=== PATIENT | male | born 1960 ===

== ENCOUNTER 2016-11-20 05:00 | Inpatient (IN) ==
[2016-11-20] MEDS ORDERED: DEXTROSE 50% 25 GM/50 ML VIAL IV PRN ×2 (08:20)
[2016-11-20] MEDS ORDERED: GLUCAGON 1 MG VIAL IM PRN ×2 (08:20)
--- NOTE | 2016-11-20 08:20 | Cardiothoracic History & Phys ---
History of Present Illness Chief complaint: Chest pain History of present illness: Mr. Kessler is a 56 year old male who was admitted to [facility] from the [facility] in [facility]. He was found there and his cell with a reduced level of responsiveness. He was taken to the emergency room at [facility] were he was found to have an elevated methamphetamine level but also was found to have evidence of increased cardiac enzymes. When he was able to give some history it was found that he been having increasing symptoms of chest discomfort shortness of breath over the past several weeks. He was admitted to the [facility] for recovery and further evaluation. As part of that he underwent cardiac catheterization which did demonstrate critical two-vessel coronary disease. He was advised to have bypass surgery and is transferred to this hospital for that purpose. Past medical history: The patient is a very poor historian and we have very little in the way of past history other than that the patient was incarcerated at this [place]. His family history social history review of systems are essentially not obtainable. Physical examination patient is a well-developed well-nourished man in no acute distress. He is not very responsive to questions although he is clearly awake and alert. Examination of head eyes ears nose and throat show the pupils are equal and react to light extraocular motions appear to be intact the oropharynx is benign. Examination of the neck shows that there are no masses and there is no thyromegaly. Examination chest is clear to percussion and auscultation. Examination of heart shows regular sinus rhythm and there are no murmurs. Examination the abdomen shows that it is soft and nontender and there are no masses or organomegaly. Examination extremities shows no cyanosis or edema. Neurological examination is grossly intact from a limited ability to fully evaluated. Assessment: Severe two-vessel coronary artery disease. Plan: Coronary bypass surgery Monday11/21/2016.
[2016-11-20] MEDS ORDERED: SODIUM CHLORIDE 0.9% 1,000 ML IV SCH (08:30)
[2016-11-20 16:30] LABS: ABG Base Excess 4.2 MMOL/L (-2.5-2.5); ABG HCO3 28.1 MMOL/L (20-26); ABG Oxygen Saturation 93.2 % (95-100); ABG PCO2 38.2 MM HG (35-48); ABG PH 7.473 (7.35-7.45); ABG PO2 61.6 MM HG (80-95); ABG TCO2 24.8 MMOL/L (23-27); Allen Test Positive; Pt O2 Delivery Device Room Air
[2016-11-20 16:49] LABS: Basophils % 0.2 % (0.0-0.8); Eosinophils # 0.2 10*3/uL (0.0-0.87); Eosinophils % 1.4 % (0.00-10.9); Hematocrit 33.2 VOL% (42.0-52.0); Hemoglobin 11.8 GM/DL (14.0-18.0); Immature Granulocytes % 0.7 %; Immature Granulocytes Absolute 0.08 #; Lymphocytes # 2.3 10*3/uL (1.4-4.0); Lymphocytes % 19.2 % (21.2-54.2); Mean Corpuscular HGB Conc 35.5 GM/DL (32-36); Mean Corpuscular Hemoglobin 33 PG (27-34); Mean Corpuscular Volume 91.5 FL (87-102); Mean Platelet Volume 10.1 FL (9.6-12.0); Monocytes # 1.3 10*3/uL (0.11-0.8); Monocytes % 10.9 % (1.7-12.7); Neutrophils # 8.2 10*3/uL (1.4-7.4); Neutrophils % 67.6 % (38.7-73.9); Platelet Count 208 T/CUMM (130-400); Red Blood Count 3.63 MC/CUMM (3.8-5.5); Red Cell Distribution Width 12.5 % (9.3-17.3); White Blood Count 12.1 T/CUMM (4-12)
--- NOTE | 2016-11-20 17:04 | XRay Report ---
Portable chest. Indication: Coronary artery disease. The heart is normal in size. There are moderate platelike areas of atelectasis present within each lung base. No pneumothorax. No definite pleural effusion. Normal pulmonary vasculature. Impression: Moderate platelike atelectasis at each lung base. PROCEDURE INTERPRETED AT [facility] DEPARTMENT OF RADIOLOGY Final Report Signed by: Dr. Millie Murphy
[2016-11-20 17:24] LABS: Albumin 2.5 G/DL (3.4-5.0); Bilirubin,Total 0.7 MG/DL (0.2-1.0); Calcium 8.7 MG/DL (8.5-10.1); Total Protein 6.5 G/DL (6.4-8.3)
[2016-11-20 17:25] LABS: Osmolality,Calculated 281.1 MOS/KG (273-304); Potassium 3.7 MMOL/L (3.5-5.1)
[2016-11-20] MEDS: hydroCHLOROthiazide 12.5 MG CAPSULE PO SCH (17:54)
[2016-11-20] MEDS: amLODIPine 10 MG TABLET PO SCH (17:54)
[2016-11-20] MEDS: CHLORHEXIDINE 0.12% ORAL RINSE 60 ML BOTTLE SWISH/SPIT SCH ×2 (17:55→20:23)
[2016-11-20] MEDS: LISINOPRIL 20 MG TABLET PO SCH (17:55)
[2016-11-20] MEDS: CHLORHEXIDINE 4% SOLN 118 ML BOTTLE TOP SCH ×3 (17:55→22:30)
[2016-11-20] MEDS ORDERED: TAMSULOSIN 0.4 MG CAPSULE PO SCH (21:00)
[2016-11-21] MEDS: CHLORHEXIDINE 4% SOLN 118 ML BOTTLE TOP SCH (03:30)
[2016-11-21] MEDS ORDERED: TISSUE ADHESIVE 1 EACH APPLICATOR TOP ONE (04:41)
[2016-11-21] MEDS ORDERED: PAPAVERINE 60 MG/2 ML VIAL ONE (04:41)
[2016-11-21] MEDS ORDERED: VANCOMYCIN 1,000 MG VIAL ONE ×2 (04:42→07:48)
[2016-11-21] MEDS ORDERED: LORazepam 1 MG TABLET PO ONE (05:30)
[2016-11-21] MEDS ORDERED: FAMOTIDINE 20 MG TABLET PO ONE (05:30)
[2016-11-21] MEDS ORDERED: SODIUM CHLORIDE 0.9% 1,000 ML IV SCH (06:00)
[2016-11-21] MEDS ORDERED: CEFUROXIME INJ 1,500 MG in SODIUM CHLORIDE 0.9% 100 ML IV ONE (06:00)
[2016-11-21 07:41] LABS: INR 1.1; PT Patient Result 11.4 SECS
[2016-11-21] MEDS ORDERED: CALCIUM CHLORIDE 1,000 MG/10 ML SYRINGE IV ONE ×2 (07:42→12:12)
[2016-11-21] MEDS ORDERED: PHENYLEPHRINE DRIP 40 MG/250 ML PREMIX IV ONE (07:42)
[2016-11-21] MEDS ORDERED: POTASSIUM CHLORIDE RIDER 100 ML IV ONE (07:42)
[2016-11-21] MEDS ORDERED: NITROPRUSSIDE 50 MG/2 ML VIAL ONE (07:42)
[2016-11-21 07:44] LABS: ABG HCO3 24.5 MMOL/L (20-26); ABG PCO2 34.3 MM HG (35-48); ABG PH 7.445 (7.35-7.45); Glucose Heart Surgery 110 MG/DL (74-106); Hematocrit Heart Surgery 34.7 PERCENT (42-52); Hemoglobin Heart Surgery 11.3 G/DL (14.0-18.0); Ionized Calcium Arterial 1.14 MMOL/L (1.21-1.46); PCO2 Patient Temp Arterial 34.3 MMHG; PH Patient Temp Arterial 7.445; Patient Temperature 37 CELCIUS; Potassium Heart/CVR 3.8 MMOL/L (3.5-5.1); Sodium Heart/CVR 138 MMOL/L (135-145)
[2016-11-21 09:21] LABS: Hematocrit Heart Surgery 25.4 PERCENT (42-52); Hemoglobin Heart Surgery 8.2 G/DL (14.0-18.0); PCO2 Patient Temp Venous 39.1 MM HG; PH Patient Temp Venous 7.422; PO2 Patient Temp Venous 33.8 MM HG; Potassium Heart/CVR 4.9 MMOL/L (3.5-5.1); VBG Base Excess 1.2 MEQ/L (0-4); VBG HCO3 25.1 MEQ/L (24-28); VBG PH 7.393; VBG PO2 38.8 MMHG (17-40)
[2016-11-21] MEDS ORDERED: EPINEPHrine 1 MG/10 ML SYRINGE ONE (09:40)
[2016-11-21] MEDS ORDERED: LIDOCAINE 100 MG/5 ML SYRINGE ONE (09:41)
[2016-11-21] MEDS ORDERED: ALBUMIN 5% 12.5 GM/250 ML VIAL IV ONE ×2 (09:43→12:14)
[2016-11-21 09:51] LABS: Hematocrit Heart Surgery 27.5 PERCENT (42-52); Hemoglobin Heart Surgery 8.9 G/DL (14.0-18.0); PCO2 Patient Temp Venous 40.7 MM HG; PH Patient Temp Venous 7.4; PO2 Patient Temp Venous 35.5 MM HG; Potassium Heart/CVR 4.6 MMOL/L (3.5-5.1); VBG Base Excess 0.5 MEQ/L (0-4); VBG HCO3 24.4 MEQ/L (24-28); VBG Oxygen Saturation 70.3 %; VBG PCO2 42.7 MMHG (41-51); VBG PH 7.385; VBG PO2 38.1 MMHG (17-40)
[2016-11-21] MEDS ORDERED: MANNITOL 12.5 GM/50 ML VIAL IV ONE (10:24)
[2016-11-21] MEDS ORDERED: PROTAMINE SULFATE 250 MG/25 ML VIAL IV ONE (10:24)
[2016-11-21] MEDS ORDERED: HEPARIN 10,000 UNIT/10 ML VIAL ONE (10:24)
[2016-11-21] MEDS ORDERED: MAGNESIUM SULFATE 1 GM/2 ML VIAL ONE (10:24)
[2016-11-21] MEDS ORDERED: methylPREDNISolone SOD SUC 1,000 MG/8 ML VIAL ONE (10:24)
[2016-11-21] MEDS ORDERED: ALBUMIN 25% 25 GM/100 ML VIAL IV ONE (10:24)
[2016-11-21] MEDS ORDERED: SODIUM BICARBONATE 50 MEQ/50 ML SYRINGE IV ONE (10:24)
[2016-11-21] MEDS ORDERED: PHENYLEPHRINE DRIP 20 MG/250 ML PREMIX IV ONE ×2 (10:24→12:12)
[2016-11-21] MEDS ORDERED: DEXTROSE 5% KCL 20 MEQ 20 MEQ/1,000 ML BAG IV ONE (10:24)
[2016-11-21] MEDS ORDERED: FUROSEMIDE 20 MG/2 ML VIAL ONE (10:25)
[2016-11-21 10:36] LABS: ABG Base Excess -2.5 MMOL/L (-2.5-2.5); ABG HCO3 22.4 MMOL/L (20-26); ABG Oxygen Saturation 99.6 % (95-100); ABG PCO2 47.6 MM HG (35-48); ABG PH 7.311 (7.35-7.45); Glucose Heart Surgery 201 MG/DL (74-106); Hemoglobin Heart Surgery 10.3 G/DL (14.0-18.0); Ionized Calcium Arterial 1.44 MMOL/L (1.21-1.46); PCO2 Patient Temp Arterial 47.6 MMHG; PH Patient Temp Arterial 7.311; Patient Temperature 37 CELCIUS; Sodium Heart/CVR 137 MMOL/L (135-145)
[2016-11-21] MEDS ORDERED: INSULIN REGULAR 100 UNIT/ML IV ONE (11:15)
[2016-11-21] MEDS ORDERED: INSULIN REGULAR 100 UNIT/ML IV PRN (11:15)
[2016-11-21] MEDS ORDERED: DEXTROSE 50% 25 GM/50 ML VIAL IV PRN ×2 (11:15)
[2016-11-21] MEDS ORDERED: MORPHINE 10 MG/1 ML VIAL IV PRN (11:15)
[2016-11-21] MEDS ORDERED: VECURONIUM 10 MG VIAL IV PRN ×2 (11:15)
[2016-11-21] MEDS ORDERED: MAGNESIUM SULF RIDER 4 GM in PREMIX 1 EACH IV PRN (11:15)
[2016-11-21] MEDS ORDERED: PHENYLEPHRINE DRIP 40 MG/250 ML PREMIX IV PRN (11:15)
[2016-11-21] MEDS ORDERED: NITROPRUSSIDE 100 MG in DEXTROSE 5% 250 ML IV PRN (11:15)
[2016-11-21] MEDS ORDERED: MAGNESIUM SULF RIDER 2 GM in PREMIX 1 EACH IV PRN (11:15)
[2016-11-21] MEDS ORDERED: MIDAZOLAM 2 MG/2 ML VIAL IV PRN (11:15)
[2016-11-21] MEDS ORDERED: ACETAMINOPHEN 650 MG SUPP RECTAL PRN (11:15)
[2016-11-21] MEDS ORDERED: MORPHINE 2 MG/1 ML SYRINGE IV PRN (11:15)
[2016-11-21] MEDS ORDERED: LACTATED RINGERS 250 ML IV PRN (11:15)
[2016-11-21] MEDS ORDERED: ONDANSETRON 4 MG/2 ML VIAL IV PRN (11:15)
[2016-11-21] MEDS: LACTATED RINGERS 1,000 ML IV PRN ×5 (11:15→21:35)
[2016-11-21] MEDS ORDERED: CALCIUM CHLORIDE 1,000 MG/10 ML SYRINGE IV PRN (11:15)
[2016-11-21] MEDS ORDERED: PROTAMINE SULFATE 50 MG/5 ML VIAL IV ONE ×2 (11:21→11:23)
[2016-11-21] MEDS ORDERED: INSULIN REGULAR DRIP 100 ML IV SCH (11:30)
[2016-11-21] MEDS: SODIUM CHLORIDE 0.45% 1,000 ML IV SCH ×2 (11:35→11:36)
[2016-11-21] MEDS: KETOROLAC 30 MG/1 ML VIAL IV SCH ×3 (11:37→23:55)
[2016-11-21 11:40] LABS: ABG Base Excess -0.5 MMOL/L (-2.5-2.5); ABG Oxygen Saturation 99.1 % (95-100); ABG PH 7.385 (7.35-7.45); ABG TCO2 22.1 MMOL/L (23-27); Glucose Heart Surgery 176 MG/DL (74-106); Hematocrit Heart Surgery 33.1 PERCENT (42-52); Hemoglobin Heart Surgery 10.7 G/DL (14.0-18.0); Potassium Heart/CVR 3.4 MMOL/L (3.5-5.1)
[2016-11-21 11:44] LABS: Basophils % 0.2 % (0.0-0.8); Eosinophils # 0.1 10*3/uL (0.0-0.87); Eosinophils % 0.7 % (0.00-10.9); Hematocrit 29.9 VOL% (42.0-52.0); Hemoglobin 10.8 GM/DL (14.0-18.0); Immature Granulocytes % 2.9 %; Immature Granulocytes Absolute 0.36 #; Lymphocytes # 1.1 10*3/uL (1.4-4.0); Lymphocytes % 9.1 % (21.2-54.2); Mean Corpuscular HGB Conc 36.1 GM/DL (32-36); Mean Corpuscular Hemoglobin 33 PG (27-34); Mean Corpuscular Volume 90.9 FL (87-102); Mean Platelet Volume 10.1 FL (9.6-12.0); Monocytes # 0.7 10*3/uL (0.11-0.8); Monocytes % 5.8 % (1.7-12.7); Neutrophils # 10.2 10*3/uL (1.4-7.4); Neutrophils % 81.3 % (38.7-73.9); Platelet Count 178 T/CUMM (130-400); Red Blood Count 3.29 MC/CUMM (3.8-5.5); Red Cell Distribution Width 12.7 % (9.3-17.3); White Blood Count 12.6 T/CUMM (4-12)
[2016-11-21] MEDS: POTASSIUM CHLORIDE RIDER 20 MEQ in PREMIX 1 EACH IV PRN ×4 (11:45→20:47)
[2016-11-21] MEDS: CHLORHEXIDINE 0.12% ORAL RINSE 60 ML BOTTLE SWISH/SPIT SCH ×2 (11:55→21:34)
[2016-11-21] MEDS: amLODIPine 10 MG TABLET PO SCH (11:55)
[2016-11-21] MEDS: hydroCHLOROthiazide 12.5 MG CAPSULE PO SCH (11:55)
[2016-11-21 11:56] LABS: INR 1.4; PT Patient Result 14.6 SECS; Partial Thromboplastin Time 27.4 SECS (0-40)
[2016-11-21] MEDS: LISINOPRIL 20 MG TABLET PO SCH (11:56)
[2016-11-21] MEDS ORDERED: SUFentanil 250 MCG/5 ML AMP ONE (12:07)
[2016-11-21] MEDS ORDERED: MIDAZOLAM 10 MG/2 ML VIAL ONE ×2 (12:07→12:13)
[2016-11-21] MEDS ORDERED: HEPARIN/NACL 0.9% 2 UNITS/ML 500 ML IV ONE (12:12)
[2016-11-21] MEDS ORDERED: SEVOFLURANE 1 UNIT/15 MINUTE INH ONE (12:12)
[2016-11-21] MEDS ORDERED: LACTATED RINGERS 1,000 ML IV ONE (12:13)
[2016-11-21] MEDS ORDERED: SODIUM CHLORIDE 0.9% 1,000 ML IV ONE (12:13)
[2016-11-21] MEDS ORDERED: SODIUM CHLORIDE 0.9% 250 ML IV ONE (12:13)
[2016-11-21] MEDS ORDERED: SODIUM CHLORIDE 0.9% 100 ML IV ONE (12:13)
[2016-11-21] MEDS ORDERED: MINERAL OIL/PETROLATUM OPH OINT 3.5 GM TUBE ONE (12:13)
[2016-11-21] MEDS ORDERED: NITROGLYCERIN DRIP 50 MG/250 ML BOTTLE IV ONE (12:13)
[2016-11-21] MEDS ORDERED: VECURONIUM 10 MG VIAL IV ONE (12:13)
[2016-11-21] MEDS ORDERED: AMINOCAPROIC ACID 5,000 MG/20 ML VIAL IV ONE (12:13)
[2016-11-21] MEDS ORDERED: ETOMIDATE 20 MG/10 ML VIAL IV ONE (12:13)
[2016-11-21 12:14] LABS: Albumin 2.9 G/DL (3.4-5.0); Bilirubin,Total 1.8 MG/DL (0.2-1.0); Calcium 9.2 MG/DL (8.5-10.1); Magnesium 2.5 MG/DL (1.8-2.4); Osmolality,Calculated 290.8 MOS/KG (273-304); Potassium 3.6 MMOL/L (3.5-5.1)
[2016-11-21 12:15] LABS: CKMB % 3.7 %
[2016-11-21 12:16] LABS: Troponin I Only 0.951 NG/ML (0.00-0.045)
[2016-11-21] MEDS: POTASSIUM CHLORIDE RIDER 10 MEQ in PREMIX 1 EACH IV PRN (12:53)
--- NOTE | 2016-11-21 13:03 | Operative Note ---
Date of procedure: 11/21/16 Pre-op diagnosis: Coronary artery disease Post-op diagnosis: same (Coronary artery disease) Procedure: Procedure: Coronary bypass grafting 2 with a left internal mammary graft to the anterior descending coronary artery and a saphenous vein graft to the right coronary artery. Findings: Patient is a 56-year-old man who was found at [facility] to have two-vessel coronary disease and was referred for bypass surgery. This time of surgery left ventricular function was noted to be normal and a left internal mammary graft was placed to a large anterior descending coronary artery which was free of disease at the site of anastomosis. Saphenous vein graft was placed to the right coronary artery. Patient tolerated procedure well and was returned to recovery in satisfactory condition. Procedure: Patient brought the operating room placed on the operating table in the supine position. After satisfactory induction of general anesthesia the chest abdomen and legs were prepped and draped in sterile fashion. Greater saphenous vein was harvested from the right lower leg and prepared is an arterial graft. Incision in the leg was closed with 3-0 subcutaneous Monocryl and 3-0 subcuticular Monocryl. A standard sternotomy incision was made and the sternum was divided and the heart suspended in a pericardial cradle. Left internal mammary artery was dissected free and prepared as an arterial graft. Patient was prepared for cardiopulmonary bypass with systemic heparinization and cannulation the ascending aorta and right atrium. Cardiopulmonary bypass was begun and aorta was crossclamped and the heart arrested with cardioplegia solution injected into the aortic root. Heart was protected during the period of crossclamping with topical saline slush. Distal anastomoses were constructed as noted above and then the aorta was unclamped reestablishing cardiac action. The proximal anastomosis was constructed between the inflow end of the saphenous vein graft in the ascending aorta. Patient was then weaned from cardiopulmonary bypass without difficulty and the heparin effect reversed with protamine. Decannulation was carried out in a defects in the ascending aorta and right atrium were closed with 3-0 Prolene. Operative field was inspected for hemostasis and this was considered adequate the incision was closed with interrupted stainless steel wire and the sternum 0 Monopril in the presternal fascia and 3-0 subcuticular Monocryl. 2 chest tubes were left in the anterior mediastinum and brought out through separate stab incisions. Sterile dressings were applied and the patient was returned to recovery in satisfactory condition. Surgeon / Physician: Kike Hammond Estimated blood loss: other (Unable to determine because of cardiopulmonary bypass) Condition: stable Disposition: ICU Results - Labs CBC & BMP: 11/21/16 11:35 11/21/16 11:35 Discharge Plan - Discharge Medications No Action amLODIPine [Norvasc] 10 mg PO DAILY hydroCHLOROthiazide [Hydrochlorothiazide] 25 mg PO DAILY Tamsulosin [Flomax] 0.4 mg PO DAILY Calcium Carbonate [Calcium Antacid] 1 tablet PO BID PRN PRN Reason: Indigestion Aspirin [Ecotrin] 81 mg PO DAILY Famotidine Tab [Pepcid Tab] 20 mg PO DAILY Lisinopril 40 mg PO DAILY - Follow Up or Referral - Forms/Instructions
[2016-11-21 14:23] LABS: ABG Base Excess 1.5 MMOL/L (-2.5-2.5); ABG HCO3 25.8 MMOL/L (20-26); ABG Oxygen Saturation 99.4 % (95-100); ABG PCO2 40.2 MM HG (35-48); ABG PH 7.419 (7.35-7.45); ABG TCO2 23.5 MMOL/L (23-27); Glucose Heart Surgery 146 MG/DL (74-106); Hematocrit Heart Surgery 32.3 PERCENT (42-52); Hemoglobin Heart Surgery 10.4 G/DL (14.0-18.0); Potassium Heart/CVR 4.1 MMOL/L (3.5-5.1)
[2016-11-21] MEDS: ALBUMIN 5% 12.5 GM in PREMIX 1 EACH IV PRN ×6 (14:31→23:17)
--- NOTE | 2016-11-21 14:33 | XRay Report ---
Exam: XR chest 1V portable Indication: Status post CABG Comparison study: Prior chest 11/20/2016 Findings: Cardiac silhouette is essentially stable from prior. Postsurgical changes of interval CABG noted. Multiple mediastinal drains are in place. There is no significant pneumothorax identified. There are minimal perihilar and basilar interstitial opacities and minimal layering fluid on the left most compatible with small pleural effusion and/or residual hemothorax. Endotracheal tube is noted in place and terminates approximately 3 cm from the don. Right-sided central line and [place]-Blanca catheter are noted in position. [place]-Blanca catheter tip is in the proximal right pulmonary artery. Impression: Postsurgical changes of interval CABG. Positioning of support tubes and lines as noted above. Probable perihilar and basilar atelectasis with small left pleural effusion/postsurgical hemothorax. No pneumothorax. PROCEDURE INTERPRETED AT [facility] DEPARTMENT OF RADIOLOGY Final Report Signed by: Gonzalez Bauman
[2016-11-21 15:01] LABS: ABG HCO3 25.4 MMOL/L (20-26); ABG Oxygen Saturation 99.7 % (95-100); ABG PCO2 40.9 MM HG (35-48); ABG PH 7.408 (7.35-7.45); ABG TCO2 23.3 MMOL/L (23-27); Glucose Heart Surgery 147 MG/DL (74-106); Hematocrit Heart Surgery 31.9 PERCENT (42-52); Hemoglobin Heart Surgery 10.3 G/DL (14.0-18.0); Potassium Heart/CVR 4.5 MMOL/L (3.5-5.1)
[2016-11-21 16:05] LABS: ABG Base Excess 1.8 MMOL/L (-2.5-2.5); ABG HCO3 26.3 MMOL/L (20-26); ABG PCO2 40.6 MM HG (35-48); ABG PH 7.429 (7.35-7.45); ABG PO2 121.9 MM HG (80-95); ABG TCO2 27.5 MMOL/L (23-27); Glucose Heart Surgery 147 MG/DL (74-106); Hemoglobin Heart Surgery 11.3 G/DL (14.0-18.0); Potassium Heart/CVR 4.4 MMOL/L (3.5-5.1)
[2016-11-21] MEDS: CEFUROXIME INJ 1,500 MG in SODIUM CHLORIDE 0.9% 100 ML IV SCH (18:08)
[2016-11-21 18:13] LABS: ABG Base Excess 1.2 MMOL/L (-2.5-2.5); ABG HCO3 25.5 MMOL/L (20-26); ABG Oxygen Saturation 97.8 % (95-100); ABG PCO2 41.7 MM HG (35-48); ABG PH 7.404 (7.35-7.45); ABG TCO2 23.5 MMOL/L (23-27); Glucose Heart Surgery 150 MG/DL (74-106); Hematocrit Heart Surgery 33.2 PERCENT (42-52); Hemoglobin Heart Surgery 10.8 G/DL (14.0-18.0); Potassium Heart/CVR 4.2 MMOL/L (3.5-5.1)
[2016-11-21] MEDS ORDERED: FUROSEMIDE 40 MG/4 ML VIAL IV ONE (18:22)
[2016-11-21 20:40] LABS: ABG Base Excess 1.4 MMOL/L (-2.5-2.5); ABG HCO3 25.6 MMOL/L (20-26); ABG Oxygen Saturation 95.4 % (95-100); ABG PCO2 41.3 MM HG (35-48); ABG PO2 75.3 MM HG (80-95); ABG TCO2 24.1 MMOL/L (23-27); Glucose Heart Surgery 134 MG/DL (74-106); Hematocrit Heart Surgery 27.9 PERCENT (42-52); Potassium Heart/CVR 3.4 MMOL/L (3.5-5.1)
[2016-11-21 21:13] LABS: CKMB % 4.5 %
[2016-11-21 21:14] LABS: Troponin I Only 2.14 NG/ML (0.00-0.045)
[2016-11-22 00:06] LABS: ABG Base Excess 1.9 MMOL/L (-2.5-2.5); ABG Oxygen Saturation 95.5 % (95-100); ABG PH 7.442 (7.35-7.45); ABG PO2 81.1 MM HG (80-95); ABG TCO2 27.2 MMOL/L (23-27); Glucose Heart Surgery 110 MG/DL (74-106); Hemoglobin Heart Surgery 10.6 G/DL (14.0-18.0); Potassium Heart/CVR 3.8 MMOL/L (3.5-5.1)
[2016-11-22] MEDS: POTASSIUM CHLORIDE RIDER 20 MEQ in PREMIX 1 EACH IV PRN ×5 (00:39→11:38)
[2016-11-22] MEDS: POTASSIUM CHLORIDE RIDER 10 MEQ in PREMIX 1 EACH IV PRN (01:29)
[2016-11-22] MEDS: MIDAZOLAM 10 MG/2 ML VIAL IV PRN ×2 (02:34→04:24)
[2016-11-22 03:51] LABS: ABG Base Excess 0.8 MMOL/L (-2.5-2.5); ABG HCO3 25.1 MMOL/L (20-26); ABG Oxygen Saturation 95.9 % (95-100); ABG PCO2 42.3 MM HG (35-48); ABG PH 7.394 (7.35-7.45); ABG PO2 78.2 MM HG (80-95); ABG TCO2 23.6 MMOL/L (23-27); Glucose Heart Surgery 117 MG/DL (74-106); Hematocrit Heart Surgery 30.4 PERCENT (42-52); Hemoglobin Heart Surgery 9.8 G/DL (14.0-18.0); Potassium Heart/CVR 3.9 MMOL/L (3.5-5.1)
[2016-11-22 04:11] LABS: Basophils % 0.1 % (0.0-0.8); Hematocrit 28.2 VOL% (42.0-52.0); Hemoglobin 9.6 GM/DL (14.0-18.0); Immature Granulocytes % 1.1 %; Immature Granulocytes Absolute 0.13 #; Lymphocytes # 0.9 10*3/uL (1.4-4.0); Lymphocytes % 7.9 % (21.2-54.2); Mean Corpuscular Hemoglobin 31 PG (27-34); Mean Corpuscular Volume 92.2 FL (87-102); Mean Platelet Volume 10.9 FL (9.6-12.0); Monocytes # 0.6 10*3/uL (0.11-0.8); Monocytes % 5.4 % (1.7-12.7); Neutrophils # 10.1 10*3/uL (1.4-7.4); Neutrophils % 85.5 % (38.7-73.9); Platelet Count 168 T/CUMM (130-400); Red Blood Count 3.06 MC/CUMM (3.8-5.5); Red Cell Distribution Width 13.9 % (9.3-17.3); White Blood Count 11.8 T/CUMM (4-12)
[2016-11-22 04:37] LABS: Albumin 3.5 G/DL (3.4-5.0); Bilirubin,Direct 0.3 MG/DL (0.0-0.20); Bilirubin,Total 0.8 MG/DL (0.2-1.0); Magnesium 2.4 MG/DL (1.8-2.4); Osmolality,Calculated 299.3 MOS/KG (273-304); Potassium 4.1 MMOL/L (3.5-5.1); Total Protein 6.2 G/DL (6.4-8.3)
[2016-11-22 05:02] LABS: ABG HCO3 24.5 MMOL/L (20-26); ABG Oxygen Saturation 97.8 % (95-100); ABG PCO2 48.3 MM HG (35-48); ABG PH 7.343 (7.35-7.45); ABG TCO2 23.9 MMOL/L (23-27); Glucose Heart Surgery 124 MG/DL (74-106); Hematocrit Heart Surgery 32.1 PERCENT (42-52); Hemoglobin Heart Surgery 10.4 G/DL (14.0-18.0); Potassium Heart/CVR 4.1 MMOL/L (3.5-5.1)
[2016-11-22 05:04] LABS: CKMB % 7.5 %
[2016-11-22 05:06] LABS: Troponin I Only 4.61 NG/ML (0.00-0.045)
[2016-11-22] MEDS ORDERED: PROPOFOL 1,000 MG/100 ML BOTTLE IV SCH (06:00)
[2016-11-22] MEDS: KETOROLAC 30 MG/1 ML VIAL IV SCH ×3 (06:12→17:49)
[2016-11-22] MEDS: CEFUROXIME INJ 1,500 MG in SODIUM CHLORIDE 0.9% 100 ML IV SCH ×2 (06:15→17:50)
[2016-11-22 06:52] LABS: ABG Base Excess 0.1 MMOL/L (-2.5-2.5); ABG HCO3 25.7 MMOL/L (20-26); ABG Oxygen Saturation 97.2 % (95-100); ABG PCO2 46.3 MM HG (35-48); ABG PH 7.363 (7.35-7.45); ABG PO2 109.7 MM HG (80-95); ABG TCO2 27.2 MMOL/L (23-27); Glucose Heart Surgery 122 MG/DL (74-106); Hemoglobin Heart Surgery 10.8 G/DL (14.0-18.0); Potassium Heart/CVR 4.2 MMOL/L (3.5-5.1)
--- NOTE | 2016-11-22 07:44 | EKG Report ---
Stationary ECG Study [facility] Test Date: 11/22/2016 7:45:02 AM Pat Name: PETER RICHTER Department: Room: 104 Gender: M [employer] Server: SHEILA : 1960 Requested by: Kike Banks Order Number: [id number] [place] MD: JO HOUSER Intervals [place] Rate: 86 P: 62 [place]: 165 QRS: 72 QRSD: 96 T: 6 QT: 406 QTc: 450 Interpretive Statements SINUS RHYTHM at 86 bpm EARLY REPOLARIZATION Electronically Signed On 11-22-16 08:36:51 CDT by JO HOUSER [email or web address]
[2016-11-22 07:57] LABS: ABG Base Excess -1.5 MMOL/L (-2.5-2.5); ABG HCO3 23.1 MMOL/L (20-26); ABG PCO2 46.9 MM HG (35-48); ABG PO2 85.4 MM HG (80-95); ABG TCO2 22.5 MMOL/L (23-27); Glucose Heart Surgery 131 MG/DL (74-106); Hematocrit Heart Surgery 31.9 PERCENT (42-52); Hemoglobin Heart Surgery 10.3 G/DL (14.0-18.0); Potassium Heart/CVR 4.1 MMOL/L (3.5-5.1)
[2016-11-22] MEDS ORDERED: INSULIN REGULAR 100 UNIT/ML SUBCUT SCH (08:00)
[2016-11-22] MEDS ORDERED: CALCIUM CARBONATE CHEW 500 MG TABLET PO PRN (08:53)
--- NOTE | 2016-11-22 08:53 | Cardiothoracic Progress Note ---
Cardiothoracic Subjective Interval history: Patient is awake alert and extubated. Vital signs have been stable through the night and his cardiac output is 7 L/min this morning. Cardiac enzymes are within normal limits for postoperative day 1. Blood gases are satisfactory postextubation. Urine output has been good and creatinine is within normal limits. Chest tube drainage is minimal at this point and I see no air leak although since she had one early postoperatively going to clamp his chest tubes and the chest x-ray later this morning and hopefully remove his chest tubes. He will need to remain in intensive care at least for the time being because of his incarcerated status. Overall his progress is satisfactory. Exam (Progress Note) - Constitutional Vitals: Period Temp Pulse Resp BP Sys/Perla Pulse Ox Last 24 Hr 96.5 F-98.9 F 64-91 8-20 77-169/50-88 92-98 Result/EKG - Labs CBC & BMP: 11/22/16 03:48 11/22/16 03:48 Labs: Laboratory Results - last 24 hr 11/20/16 11/21/16 11/21/16 16:43 09:20 09:53 WBC RBC Hgb Hct MCV MCH MCHC RDW Plt Count MPV Neut % (Auto) Lymph % (Auto) Towns % (Auto) Eos % (Auto) Baso % (Auto) Neut # (Auto) Lymph # (Auto) Towns # (Auto) Eos # (Auto) Baso # (Auto) Immature Gran % Nucleated RBC % Immature Gran # Nucleated RBCs # INR PT Patient/Control Mix Circ Anticoag PTT Patient Temperature 35 36 ABG pH ABG pH at Pt Temp 7.422 7.400 ABG pCO2 ABG pCO2 at Pt Temp 39.1 40.7 ABG pO2 ABG pO2 at Pt Temp 33.8 35.5 ABG HCO3 ABG Total CO2 ABG O2 Saturation ABG Base Excess ABG Sodium 133 L 135 VBG pH 7.393 7.385 VBG pCO2 43.0 42.7 VBG pO2 38.8 38.1 VBG HCO3 25.1 24.4 VBG Total CO2 24.6 23.8 VBG O2 Saturation 72.0 70.3 VBG Base Excess 1.2 0.5 Hemoglobin 8.2 L D 8.9 L Hematocrit 25.4 L 27.5 L Potassium 4.9 4.6 Glucose 298 H 222 H Ionized Calcium FiO2 80.00 80.00 Sodium Chloride Carbon Dioxide Anion Gap BUN Creatinine GFR Calculation BUN/Creatinine Ratio Calculated Osmolality Calcium Venous Ioniz Calcium 1.01 L 1.05 L Magnesium Total Bilirubin Direct Bilirubin AST ALT Alkaline Phosphatase Total Creatine Kinase CK-MB (CK-2) CK and CKMB Interp Troponin I Total Protein Albumin Globulin Albumin/Globulin Ratio Blood Type A POSITIVE Antibody Screen Negative Crossmatch See Detail 11/21/16 11/21/16 11/21/16 10:33 10:33 11:35 WBC RBC Hgb Hct MCV MCH MCHC RDW Plt Count 123 L D MPV Neut % (Auto) Lymph % (Auto) Towns % (Auto) Eos % (Auto) Baso % (Auto) Neut # (Auto) Lymph # (Auto) Towns # (Auto) Eos # (Auto) Baso # (Auto) Immature Gran % Nucleated RBC % Immature Gran # Nucleated RBCs # INR PT Patient/Control Mix Circ Anticoag PTT Patient Temperature 37 ABG pH 7.311 L ABG pH at Pt Temp 7.311 ABG pCO2 47.6 ABG pCO2 at Pt Temp 47.6 ABG pO2 227.0 H ABG pO2 at Pt Temp 227.0 ABG HCO3 22.4 ABG Total CO2 22.0 L ABG O2 Saturation 99.6 ABG Base Excess -2.5 ABG Sodium 137 VBG pH VBG pCO2 VBG pO2 VBG HCO3 VBG Total CO2 VBG O2 Saturation VBG Base Excess Hemoglobin 10.3 L Hematocrit 32.0 L Potassium 4.0 Glucose 201 H Ionized Calcium 1.44 FiO2 Sodium Chloride Carbon Dioxide Anion Gap BUN Creatinine GFR Calculation BUN/Creatinine Ratio Calculated Osmolality Calcium Venous Ioniz Calcium Magnesium Total Bilirubin Direct Bilirubin AST ALT Alkaline Phosphatase Total Creatine Kinase 160 CK-MB (CK-2) 5.9 H CK and CKMB Interp 3.7 Troponin I 0.951 H Total Protein Albumin Globulin Albumin/Globulin Ratio Blood Type Antibody Screen Crossmatch 11/21/16 11/21/16 11/21/16 11:35 11:35 11:35 WBC 12.6 H RBC 3.29 L Hgb 10.8 L Hct 29.9 L MCV 90.9 MCH 33 MCHC 36.1 H RDW 12.7 Plt Count 178 D MPV 10.1 Neut % (Auto) 81.3 H Lymph % (Auto) 9.1 L Towns % (Auto) 5.8 Eos % (Auto) 0.7 Baso % (Auto) 0.2 Neut # (Auto) 10.2 H Lymph # (Auto) 1.1 L Towns # (Auto) 0.7 Eos # (Auto) 0.1 Baso # (Auto) 0.0 Immature Gran % 2.9 Nucleated RBC % 0.0 Immature Gran # 0.36 Nucleated RBCs # 0.00 INR 1.4 PT Patient/Control Mix 14.6 D Circ Anticoag PTT 27.4 Patient Temperature ABG pH ABG pH at Pt Temp ABG pCO2 ABG pCO2 at Pt Temp ABG pO2 ABG pO2 at Pt Temp ABG HCO3 ABG Total CO2 ABG O2 Saturation ABG Base Excess ABG Sodium VBG pH VBG pCO2 VBG pO2 VBG HCO3 VBG Total CO2 VBG O2 Saturation VBG Base Excess Hemoglobin Hematocrit Potassium 3.6 Glucose 170 H Ionized Calcium FiO2 Sodium 144 Chloride 109 H Carbon Dioxide 27 Anion Gap 11.6 BUN 16 Creatinine 0.90 GFR Calculation 126 BUN/Creatinine Ratio 17.00 Calculated Osmolality 290.8 Calcium 9.2 Venous Ioniz Calcium Magnesium 2.5 H Total Bilirubin 1.80 H Direct Bilirubin AST 225 H ALT 116 H Alkaline Phosphatase 165 H Total Creatine Kinase CK-MB (CK-2) CK and CKMB Interp Troponin I Total Protein 6.0 L Albumin 2.9 L Globulin 3.1 Albumin/Globulin Ratio 0.9 L Blood Type Antibody Screen Crossmatch 11/21/16 11/21/16 11/21/16 11:35 14:21 14:58 WBC RBC Hgb Hct MCV MCH MCHC RDW Plt Count MPV Neut % (Auto) Lymph % (Auto) Towns % (Auto) Eos % (Auto) Baso % (Auto) Neut # (Auto) Lymph # (Auto) Towns # (Auto) Eos # (Auto) Baso # (Auto) Immature Gran % Nucleated RBC % Immature Gran # Nucleated RBCs # INR PT Patient/Control Mix Circ Anticoag PTT Patient Temperature ABG pH 7.385 7.419 7.408 ABG pH at Pt Temp ABG pCO2 41.0 40.2 40.9 ABG pCO2 at Pt Temp ABG pO2 127.0 H 167.0 H 178.0 H ABG pO2 at Pt Temp ABG HCO3 24.0 25.8 25.4 ABG Total CO2 22.1 L 23.5 23.3 ABG O2 Saturation 99.1 99.4 99.7 ABG Base Excess -0.5 1.5 1.0 ABG Sodium VBG pH VBG pCO2 VBG pO2 VBG HCO3 VBG Total CO2 VBG O2 Saturation VBG Base Excess Hemoglobin 10.7 L 10.4 L 10.3 L Hematocrit 33.1 L 32.3 L 31.9 L Potassium 3.4 L 4.1 4.5 Glucose 176 H 146 H 147 H Ionized Calcium FiO2 Sodium Chloride Carbon Dioxide Anion Gap BUN Creatinine GFR Calculation BUN/Creatinine Ratio Calculated Osmolality Calcium Venous Ioniz Calcium Magnesium Total Bilirubin Direct Bilirubin AST ALT Alkaline Phosphatase Total Creatine Kinase CK-MB (CK-2) CK and CKMB Interp Troponin I Total Protein Albumin Globulin Albumin/Globulin Ratio Blood Type Antibody Screen Crossmatch 11/21/16 11/21/16 11/21/16 15:59 18:10 20:26 WBC RBC Hgb Hct MCV MCH MCHC RDW Plt Count MPV Neut % (Auto) Lymph % (Auto) Towns % (Auto) Eos % (Auto) Baso % (Auto) Neut # (Auto) Lymph # (Auto) Towns # (Auto) Eos # (Auto) Baso # (Auto) Immature Gran % Nucleated RBC % Immature Gran # Nucleated RBCs # INR PT Patient/Control Mix Circ Anticoag PTT Patient Temperature ABG pH 7.429 7.404 7.410 ABG pH at Pt Temp ABG pCO2 40.6 41.7 41.3 ABG pCO2 at Pt Temp ABG pO2 121.9 H 102.0 H 75.3 L ABG pO2 at Pt Temp ABG HCO3 26.3 H 25.5 25.6 ABG Total CO2 27.5 H 23.5 24.1 ABG O2 Saturation 98.0 97.8 95.4 ABG Base Excess 1.8 1.2 1.4 ABG Sodium VBG pH VBG pCO2 VBG pO2 VBG HCO3 VBG Total CO2 VBG O2 Saturation VBG Base Excess Hemoglobin 11.3 L 10.8 L 9.0 L Hematocrit 33.0 L 33.2 L 27.9 L Potassium 4.4 4.2 3.4 L Glucose 147 H 150 H 134 H Ionized Calcium FiO2 Sodium Chloride Carbon Dioxide Anion Gap BUN Creatinine GFR Calculation BUN/Creatinine Ratio Calculated Osmolality Calcium Venous Ioniz Calcium Magnesium Total Bilirubin Direct Bilirubin AST ALT Alkaline Phosphatase Total Creatine Kinase CK-MB (CK-2) CK and CKMB Interp Troponin I Total Protein Albumin Globulin Albumin/Globulin Ratio Blood Type Antibody Screen Crossmatch 11/21/16 11/22/16 11/22/16 20:35 00:03 03:48 WBC RBC Hgb Hct MCV MCH MCHC RDW Plt Count MPV Neut % (Auto) Lymph % (Auto) Towns % (Auto) Eos % (Auto) Baso % (Auto) Neut # (Auto) Lymph # (Auto) Towns # (Auto) Eos # (Auto) Baso # (Auto) Immature Gran % Nucleated RBC % Immature Gran # Nucleated RBCs # INR PT Patient/Control Mix Circ Anticoag PTT Patient Temperature ABG pH 7.442 ABG pH at Pt Temp ABG pCO2 39.0 ABG pCO2 at Pt Temp ABG pO2 81.1 ABG pO2 at Pt Temp ABG HCO3 26.0 ABG Total CO2 27.2 H ABG O2 Saturation 95.5 ABG Base Excess 1.9 ABG Sodium VBG pH VBG pCO2 VBG pO2 VBG HCO3 VBG Total CO2 VBG O2 Saturation VBG Base Excess Hemoglobin 10.6 L Hematocrit 31.0 L Potassium 3.8 Glucose 110 H Ionized Calcium FiO2 Sodium Chloride Carbon Dioxide Anion Gap BUN Creatinine GFR Calculation BUN/Creatinine Ratio Calculated Osmolality Calcium Venous Ioniz Calcium Magnesium Total Bilirubin Direct Bilirubin AST ALT Alkaline Phosphatase Total Creatine Kinase 286 D 451 H D CK-MB (CK-2) 12.9 H D 33.8 H D CK and CKMB Interp 4.5 7.5 Troponin I 2.140 H D 4.610 H D Total Protein Albumin Globulin Albumin/Globulin Ratio Blood Type Antibody Screen Crossmatch 11/22/16 11/22/16 11/22/16 03:48 03:48 03:48 WBC 11.8 RBC 3.06 L Hgb 9.6 L Hct 28.2 L MCV 92.2 MCH 31 MCHC 34.0 RDW 13.9 Plt Count 168 MPV 10.9 Neut % (Auto) 85.5 H Lymph % (Auto) 7.9 L Towns % (Auto) 5.4 Eos % (Auto) 0.0 Baso % (Auto) 0.1 Neut # (Auto) 10.1 H Lymph # (Auto) 0.9 L Towns # (Auto) 0.6 Eos # (Auto) 0.0 Baso # (Auto) 0.0 Immature Gran % 1.1 Nucleated RBC % 0.0 Immature Gran # 0.13 Nucleated RBCs # 0.00 INR PT Patient/Control Mix Circ Anticoag PTT Patient Temperature ABG pH 7.394 ABG pH at Pt Temp ABG pCO2 42.3 ABG pCO2 at Pt Temp ABG pO2 78.2 L ABG pO2 at Pt Temp ABG HCO3 25.1 ABG Total CO2 23.6 ABG O2 Saturation 95.9 ABG Base Excess 0.8 ABG Sodium VBG pH VBG pCO2 VBG pO2 VBG HCO3 VBG Total CO2 VBG O2 Saturation VBG Base Excess Hemoglobin 9.8 L Hematocrit 30.4 L Potassium 4.1 3.9 Glucose 109 H 117 H Ionized Calcium FiO2 Sodium 148 H Chloride 113 H Carbon Dioxide 27 Anion Gap 12.1 BUN 27 H D Creatinine 0.90 GFR Calculation 126 BUN/Creatinine Ratio 30.00 H Calculated Osmolality 299.3 Calcium 9.0 Venous Ioniz Calcium Magnesium 2.4 Total Bilirubin 0.80 Direct Bilirubin 0.30 H AST 104 H ALT 90 H Alkaline Phosphatase 122 H Total Creatine Kinase CK-MB (CK-2) CK and CKMB Interp Troponin I Total Protein 6.2 L Albumin 3.5 Globulin 2.7 Albumin/Globulin Ratio 1.2 Blood Type Antibody Screen Crossmatch 11/22/16 11/22/16 11/22/16 04:57 06:47 07:55 WBC RBC Hgb Hct MCV MCH MCHC RDW Plt Count MPV Neut % (Auto) Lymph % (Auto) Towns % (Auto) Eos % (Auto) Baso % (Auto) Neut # (Auto) Lymph # (Auto) Towns # (Auto) Eos # (Auto) Baso # (Auto) Immature Gran % Nucleated RBC % Immature Gran # Nucleated RBCs # INR PT Patient/Control Mix Circ Anticoag PTT Patient Temperature ABG pH 7.343 L 7.363 7.330 L ABG pH at Pt Temp ABG pCO2 48.3 H 46.3 46.9 ABG pCO2 at Pt Temp ABG pO2 110.0 H 109.7 H 85.4 ABG pO2 at Pt Temp ABG HCO3 24.5 25.7 23.1 ABG Total CO2 23.9 27.2 H 22.5 L ABG O2 Saturation 97.8 97.2 96.0 ABG Base Excess 0.0 0.1 -1.5 ABG Sodium VBG pH VBG pCO2 VBG pO2 VBG HCO3 VBG Total CO2 VBG O2 Saturation VBG Base Excess Hemoglobin 10.4 L 10.8 L 10.3 L Hematocrit 32.1 L 32.0 L 31.9 L Potassium 4.1 4.2 4.1 Glucose 124 H 122 H 131 H Ionized Calcium FiO2 Sodium Chloride Carbon Dioxide Anion Gap BUN Creatinine GFR Calculation BUN/Creatinine Ratio Calculated Osmolality Calcium Venous Ioniz Calcium Magnesium Total Bilirubin Direct Bilirubin AST ALT Alkaline Phosphatase Total Creatine Kinase CK-MB (CK-2) CK and CKMB Interp Troponin I Total Protein Albumin Globulin Albumin/Globulin Ratio Blood Type Antibody Screen Crossmatch Quality Measures - VTE Contraindication to Pharmacological VTE Prophylaxis: High Risk of Bleeding
--- NOTE | 2016-11-22 09:08 | XRay Report ---
Exam: XR chest 1V portable Date: 11/22/2016 845 AM Indication: Follow-up chest tube removal Comparison: 11/21/2016 1:58 PM Technical:AP portable Findings: Cardiomegaly present. Previous sternotomy. Mediastinal drains are present. A right IJ catheter is present. The [place]-Blanca catheter has been removed. Nasogastric tube is present. Endotracheal tube appears absent. Tiny low volume left effusion and atelectatic change present. No pneumothorax. Impression: 1. Interval movement endotracheal tube and the [place]-Blanca catheter 2. Stable position of the mediastinal drains in the right sided central venous catheter with the distal tip in the right atrium. 3. Stable system nasogastric tube 4. Low volume effusions and atelectatic change with mild cardiac enlargement previous sternotomy PROCEDURE INTERPRETED AT [facility] DEPARTMENT OF RADIOLOGY Final Report Signed by: Dr. Misael Greene
[2016-11-22] MEDS: hydroCHLOROthiazide 25 MG TABLET PO SCH (09:49)
[2016-11-22] MEDS: amLODIPine 10 MG TABLET PO SCH (09:49)
[2016-11-22] MEDS: ASPIRIN EC 81 MG TABLET PO SCH (09:49)
[2016-11-22] MEDS: LISINOPRIL 20 MG TABLET PO SCH (09:50)
[2016-11-22] MEDS: TAMSULOSIN 0.4 MG CAPSULE PO SCH (09:50)
[2016-11-22] MEDS: FAMOTIDINE 20 MG TABLET PO SCH (09:50)
[2016-11-22] MEDS: CHLORHEXIDINE 0.12% ORAL RINSE 60 ML BOTTLE SWISH/SPIT SCH ×2 (09:51→21:46)
[2016-11-22 10:42] LABS: CKMB % 8.5 %
[2016-11-22 10:44] LABS: Troponin I Only 5.98 NG/ML (0.00-0.045)
--- NOTE | 2016-11-22 10:54 | Anesthesia Post-Op ---
Anesthesia Post OP - Post Ansesthetic Evaluation Patient seen in post op: Yes Resp: within normal limits CV: within normal limits Mental: within normal limits Temp: within normal limits [id number]: within normal limits Nausea and Vomiting: within normal limits Pain: within normal limits
[2016-11-22] MEDS: INSULIN REGULAR 100 UNIT/ML SUBCUT SCH ×3 (11:37→21:46)
--- NOTE | 2016-11-22 11:38 | XRay Report ---
Exam: XR chest 1V portable Date: 11/22/2016 11:15 AM Indication: Post chest tube removal Comparison: 11/22/2016 8:45 AM Technical: AP portable Findings: Nasogastric tube and right IJ catheter unchanged. The mediastinal drains have been removed. Sternotomy wires are present. Cardiomegaly is present with low volume effusions and alveolar densities without pneumothorax. Impression: 1. Removal of the mediastinal drain tubes 2. Stable appearance of the nasogastric tube and right IJ catheter and sternotomy wires 3. Cardiomegaly with low volume effusion left greater than right with some interstitial alveolar densities bilaterally without pneumothorax PROCEDURE INTERPRETED AT [facility] DEPARTMENT OF RADIOLOGY Final Report Signed by: Dr. Misael Greene
[2016-11-22] MEDS: SODIUM CHLORIDE 0.45% 1,000 ML IV SCH ×2 (12:30)
[2016-11-22] MEDS ORDERED: oxyCODONE/ACETAMINOPHEN 5-325 MG TABLET PO PRN (12:47)
[2016-11-22] MEDS: HYDROmorphone 2 MG/1 ML VIAL IV PRN ×4 (13:30→23:58)
[2016-11-23] MEDS: INSULIN REGULAR 100 UNIT/ML SUBCUT SCH ×4 (00:41→13:32)
[2016-11-23 04:12] LABS: Basophils % 0.1 % (0.0-0.8); Hematocrit 28.2 VOL% (42.0-52.0); Hemoglobin 9.8 GM/DL (14.0-18.0); Immature Granulocytes % 1.5 %; Immature Granulocytes Absolute 0.29 #; Lymphocytes # 0.9 10*3/uL (1.4-4.0); Lymphocytes % 4.6 % (21.2-54.2); Mean Corpuscular HGB Conc 34.8 GM/DL (32-36); Mean Corpuscular Hemoglobin 32 PG (27-34); Mean Corpuscular Volume 93.1 FL (87-102); Mean Platelet Volume 10.7 FL (9.6-12.0); Monocytes # 1.8 10*3/uL (0.11-0.8); Monocytes % 8.8 % (1.7-12.7); Neutrophils # 16.9 10*3/uL (1.4-7.4); Platelet Count 190 T/CUMM (130-400); Red Blood Count 3.03 MC/CUMM (3.8-5.5); Red Cell Distribution Width 14.2 % (9.3-17.3); White Blood Count 19.9 T/CUMM (4-12)
[2016-11-23] MEDS: HYDROmorphone 2 MG/1 ML VIAL IV PRN ×4 (04:36→18:08)
[2016-11-23 04:44] LABS: Albumin 3.4 G/DL (3.4-5.0); Bilirubin,Direct 0.1 MG/DL (0.0-0.20); Bilirubin,Total 0.8 MG/DL (0.2-1.0); Calcium 8.4 MG/DL (8.5-10.1); Magnesium 2.6 MG/DL (1.8-2.4); Osmolality,Calculated 298.6 MOS/KG (273-304); Potassium 4.1 MMOL/L (3.5-5.1); Total Protein 6.3 G/DL (6.4-8.3)
[2016-11-23 05:12] LABS: Lymphocytes 8 % (20-55); Segmented Neutrophils 87 % (50-85); Total Cells Counted 100
[2016-11-23 05:13] LABS: Hypochromasia 1+; Microcytosis Slight; Platelet Estimate Adequate
[2016-11-23] MEDS ORDERED: ONDANSETRON 4 MG/2 ML VIAL IV PRN (06:18)
[2016-11-23] MEDS ORDERED: ACETAMINOPHEN 325 MG TABLET PO PRN (06:18)
[2016-11-23] MEDS ORDERED: MAGNESIUM HYDROXIDE SUSP 30 ML UDCUP PO PRN (06:18)
[2016-11-23] MEDS ORDERED: DEXTROSE 50% 25 GM/50 ML VIAL IV PRN ×2 (06:18)
[2016-11-23] MEDS ORDERED: ALUMINUM/MAGNES/SIMETH MAX STR 30 ML UDCUP PO PRN (06:18)
[2016-11-23] MEDS ORDERED: oxyCODONE/ACETAMINOPHEN 5-325 MG TABLET PO PRN (06:18)
[2016-11-23] MEDS ORDERED: MAGNESIUM SULF RIDER 4 GM in PREMIX 1 EACH IV PRN (06:18)
[2016-11-23] MEDS ORDERED: MAGNESIUM SULF RIDER 2 GM in PREMIX 1 EACH IV PRN (06:18)
[2016-11-23] MEDS ORDERED: GLUCAGON 1 MG VIAL IM PRN ×2 (06:18)
[2016-11-23] MEDS ORDERED: ZALEPLON 5 MG CAPSULE PO PRN (06:18)
[2016-11-23] MEDS ORDERED: POTASSIUM CHLORIDE 20 MEQ TABLET PO PRN (06:18)
--- NOTE | 2016-11-23 06:23 | Cardiothoracic Progress Note ---
Cardiothoracic Subjective Interval history: Patient looks and feels okay this morning. He has been stable through the night and his vital signs are stable and he is breathing comfortably. Urine output has been good. Overall his progress has been satisfactory and I think he can move to telemetry this morning. Exam (Progress Note) - Constitutional Vitals: Period Temp Pulse Resp BP Sys/Perla Pulse Ox Last 24 Hr 96.5 F-98.1 F 79-99 10-21 97-159/52-107 89-98 Result/EKG - Labs CBC & BMP: 11/23/16 03:45 11/23/16 03:45 Labs: Laboratory Results - last 24 hr 11/21/16 11/21/16 11/21/16 12:30 13:06 17:15 WBC RBC Hgb Hct MCV MCH MCHC RDW Plt Count MPV Neut % (Auto) Lymph % (Auto) [place] % (Auto) Eos % (Auto) Baso % (Auto) Neut # (Auto) Lymph # (Auto) [place] # (Auto) Eos # (Auto) Baso # (Auto) Total Counted Immature Gran % Nucleated RBC % Immature Gran # Segmented Neutrophils Lymphocytes Monocytes Nucleated RBCs # Platelet Estimate Hypochromasia Microcytosis ABG pH ABG pCO2 ABG pO2 ABG HCO3 ABG Total CO2 ABG O2 Saturation ABG Base Excess Hemoglobin Hematocrit Potassium Glucose Sodium Chloride Carbon Dioxide Anion Gap BUN Creatinine GFR Calculation BUN/Creatinine Ratio POC Glucose 149 H 154 H 166 H Calculated Osmolality Calcium Magnesium Total Bilirubin Direct Bilirubin AST ALT Alkaline Phosphatase Total Creatine Kinase CK-MB (CK-2) CK and CKMB Interp Troponin I Total Protein Albumin Globulin Albumin/Globulin Ratio 11/21/16 11/21/16 11/21/16 19:22 20:39 21:25 WBC RBC Hgb Hct MCV MCH MCHC RDW Plt Count MPV Neut % (Auto) Lymph % (Auto) [place] % (Auto) Eos % (Auto) Baso % (Auto) Neut # (Auto) Lymph # (Auto) [place] # (Auto) Eos # (Auto) Baso # (Auto) Total Counted Immature Gran % Nucleated RBC % Immature Gran # Segmented Neutrophils Lymphocytes Monocytes Nucleated RBCs # Platelet Estimate Hypochromasia Microcytosis ABG pH ABG pCO2 ABG pO2 ABG HCO3 ABG Total CO2 ABG O2 Saturation ABG Base Excess Hemoglobin Hematocrit Potassium Glucose Sodium Chloride Carbon Dioxide Anion Gap BUN Creatinine GFR Calculation BUN/Creatinine Ratio POC Glucose 167 H 145 H 140 H Calculated Osmolality Calcium Magnesium Total Bilirubin Direct Bilirubin AST ALT Alkaline Phosphatase Total Creatine Kinase CK-MB (CK-2) CK and CKMB Interp Troponin I Total Protein Albumin Globulin Albumin/Globulin Ratio 11/21/16 11/21/16 11/22/16 22:12 23:11 00:17 WBC RBC Hgb Hct MCV MCH MCHC RDW Plt Count MPV Neut % (Auto) Lymph % (Auto) [place] % (Auto) Eos % (Auto) Baso % (Auto) Neut # (Auto) Lymph # (Auto) [place] # (Auto) Eos # (Auto) Baso # (Auto) Total Counted Immature Gran % Nucleated RBC % Immature Gran # Segmented Neutrophils Lymphocytes Monocytes Nucleated RBCs # Platelet Estimate Hypochromasia Microcytosis ABG pH ABG pCO2 ABG pO2 ABG HCO3 ABG Total CO2 ABG O2 Saturation ABG Base Excess Hemoglobin Hematocrit Potassium Glucose Sodium Chloride Carbon Dioxide Anion Gap BUN Creatinine GFR Calculation BUN/Creatinine Ratio POC Glucose 135 H 122 H 118 H Calculated Osmolality Calcium Magnesium Total Bilirubin Direct Bilirubin AST ALT Alkaline Phosphatase Total Creatine Kinase CK-MB (CK-2) CK and CKMB Interp Troponin I Total Protein Albumin Globulin Albumin/Globulin Ratio 11/22/16 11/22/16 11/22/16 01:19 02:39 03:17 WBC RBC Hgb Hct MCV MCH MCHC RDW Plt Count MPV Neut % (Auto) Lymph % (Auto) [place] % (Auto) Eos % (Auto) Baso % (Auto) Neut # (Auto) Lymph # (Auto) [place] # (Auto) Eos # (Auto) Baso # (Auto) Total Counted Immature Gran % Nucleated RBC % Immature Gran # Segmented Neutrophils Lymphocytes Monocytes Nucleated RBCs # Platelet Estimate Hypochromasia Microcytosis ABG pH ABG pCO2 ABG pO2 ABG HCO3 ABG Total CO2 ABG O2 Saturation ABG Base Excess Hemoglobin Hematocrit Potassium Glucose Sodium Chloride Carbon Dioxide Anion Gap BUN Creatinine GFR Calculation BUN/Creatinine Ratio POC Glucose 110 H 103 110 H Calculated Osmolality Calcium Magnesium Total Bilirubin Direct Bilirubin AST ALT Alkaline Phosphatase Total Creatine Kinase CK-MB (CK-2) CK and CKMB Interp Troponin I Total Protein Albumin Globulin Albumin/Globulin Ratio 11/22/16 11/22/16 11/22/16 05:44 06:47 07:55 WBC RBC Hgb Hct MCV MCH MCHC RDW Plt Count MPV Neut % (Auto) Lymph % (Auto) [place] % (Auto) Eos % (Auto) Baso % (Auto) Neut # (Auto) Lymph # (Auto) [place] # (Auto) Eos # (Auto) Baso # (Auto) Total Counted Immature Gran % Nucleated RBC % Immature Gran # Segmented Neutrophils Lymphocytes Monocytes Nucleated RBCs # Platelet Estimate Hypochromasia Microcytosis ABG pH 7.363 7.330 L ABG pCO2 46.3 46.9 ABG pO2 109.7 H 85.4 ABG HCO3 25.7 23.1 ABG Total CO2 27.2 H 22.5 L ABG O2 Saturation 97.2 96.0 ABG Base Excess 0.1 -1.5 Hemoglobin 10.8 L 10.3 L Hematocrit 32.0 L 31.9 L Potassium 4.2 4.1 Glucose 122 H 131 H Sodium Chloride Carbon Dioxide Anion Gap BUN Creatinine GFR Calculation BUN/Creatinine Ratio POC Glucose 130 H Calculated Osmolality Calcium Magnesium Total Bilirubin Direct Bilirubin AST ALT Alkaline Phosphatase Total Creatine Kinase CK-MB (CK-2) CK and CKMB Interp Troponin I Total Protein Albumin Globulin Albumin/Globulin Ratio 11/22/16 11/22/16 11/22/16 10:00 10:00 11:28 WBC RBC Hgb Hct MCV MCH MCHC RDW Plt Count MPV Neut % (Auto) Lymph % (Auto) [place] % (Auto) Eos % (Auto) Baso % (Auto) Neut # (Auto) Lymph # (Auto) [place] # (Auto) Eos # (Auto) Baso # (Auto) Total Counted Immature Gran % Nucleated RBC % Immature Gran # Segmented Neutrophils Lymphocytes Monocytes Nucleated RBCs # Platelet Estimate Hypochromasia Microcytosis ABG pH ABG pCO2 ABG pO2 ABG HCO3 ABG Total CO2 ABG O2 Saturation ABG Base Excess Hemoglobin Hematocrit Potassium 4.0 Glucose Sodium Chloride Carbon Dioxide Anion Gap BUN Creatinine GFR Calculation BUN/Creatinine Ratio POC Glucose 157 H Calculated Osmolality Calcium Magnesium Total Bilirubin Direct Bilirubin AST ALT Alkaline Phosphatase Total Creatine Kinase 640 H D CK-MB (CK-2) 54.2 H D CK and CKMB Interp 8.5 Troponin I 5.980 H D Total Protein Albumin Globulin Albumin/Globulin Ratio 11/22/16 11/22/16 11/22/16 16:30 19:58 23:50 WBC RBC Hgb Hct MCV MCH MCHC RDW Plt Count MPV Neut % (Auto) Lymph % (Auto) [place] % (Auto) Eos % (Auto) Baso % (Auto) Neut # (Auto) Lymph # (Auto) [place] # (Auto) Eos # (Auto) Baso # (Auto) Total Counted Immature Gran % Nucleated RBC % Immature Gran # Segmented Neutrophils Lymphocytes Monocytes Nucleated RBCs # Platelet Estimate Hypochromasia Microcytosis ABG pH ABG pCO2 ABG pO2 ABG HCO3 ABG Total CO2 ABG O2 Saturation ABG Base Excess Hemoglobin Hematocrit Potassium Glucose Sodium Chloride Carbon Dioxide Anion Gap BUN Creatinine GFR Calculation BUN/Creatinine Ratio POC Glucose 161 H 212 H 170 H Calculated Osmolality Calcium Magnesium Total Bilirubin Direct Bilirubin AST ALT Alkaline Phosphatase Total Creatine Kinase CK-MB (CK-2) CK and CKMB Interp Troponin I Total Protein Albumin Globulin Albumin/Globulin Ratio 11/23/16 11/23/16 11/23/16 03:45 03:45 03:58 WBC 19.9 H D RBC 3.03 L Hgb 9.8 L Hct 28.2 L MCV 93.1 MCH 32 MCHC 34.8 RDW 14.2 Plt Count 190 MPV 10.7 Neut % (Auto) 85.0 H Lymph % (Auto) 4.6 L [place] % (Auto) 8.8 Eos % (Auto) 0.0 Baso % (Auto) 0.1 Neut # (Auto) 16.9 H Lymph # (Auto) 0.9 L [place] # (Auto) 1.8 H Eos # (Auto) 0.0 Baso # (Auto) 0.0 Total Counted 100 Immature Gran % 1.5 Nucleated RBC % 0.0 Immature Gran # 0.29 Segmented Neutrophils 87 H Lymphocytes 8 L Monocytes 5 Nucleated RBCs # 0.00 Platelet Estimate Adequate Hypochromasia 1+ Microcytosis Slight ABG pH ABG pCO2 ABG pO2 ABG HCO3 ABG Total CO2 ABG O2 Saturation ABG Base Excess Hemoglobin Hematocrit Potassium 4.1 Glucose 129 H Sodium 146 H Chloride 109 H Carbon Dioxide 30 Anion Gap 11.1 BUN 33 H Creatinine 0.80 GFR Calculation 130 BUN/Creatinine Ratio 41.00 H POC Glucose 150 H Calculated Osmolality 298.6 Calcium 8.4 L Magnesium 2.6 H Total Bilirubin 0.80 Direct Bilirubin 0.10 AST 91 H ALT 72 H Alkaline Phosphatase 103 Total Creatine Kinase CK-MB (CK-2) CK and CKMB Interp Troponin I Total Protein 6.3 L Albumin 3.4 Globulin 2.9 Albumin/Globulin Ratio 1.1 Quality Measures - VTE Contraindication to Pharmacological VTE Prophylaxis: High Risk of Bleeding
[2016-11-23] MEDS ORDERED: SODIUM CHLOR 0.45% KCL 20 MEQ 20 MEQ/1,000 ML BAG IV SCH (06:30)
--- NOTE | 2016-11-23 07:32 | XRay Report ---
Exam: XR chest 1V portable Date: 11/23/2016 4:00 AM Indication: Follow-up chest tube removal Comparison: 11/22/2016 Technical: AP portable Findings: Right IJ catheter is present. Cardiomegaly is present with previous sternotomy. Low volume effusion on the left present. No pneumothorax. Nasogastric tube has been removed. Impression: 1. Stable position of the right IJ catheter 2. Removal nasogastric tube 3. Previous sternotomy with small residual low volume left effusion and atelectatic change in the left base 4. No pneumothorax PROCEDURE INTERPRETED AT [facility] DEPARTMENT OF RADIOLOGY Final Report Signed by: Dr. Misael Greene
[2016-11-23] MEDS: KETOROLAC 30 MG/1 ML VIAL IV SCH ×3 (08:14→18:08)
[2016-11-23] MEDS ORDERED: CHLORHEXIDINE 0.12% ORAL RINSE 60 ML BOTTLE SWISH/SPIT SCH (09:00)
[2016-11-23] MEDS: amLODIPine 10 MG TABLET PO SCH (09:38)
[2016-11-23] MEDS: ASPIRIN EC 81 MG TABLET PO SCH (09:39)
[2016-11-23] MEDS: FERROUS SULFATE 325 MG TABLET PO SCH (09:39)
[2016-11-23] MEDS: hydroCHLOROthiazide 25 MG TABLET PO SCH (09:39)
[2016-11-23] MEDS: DOCUSATE SODIUM 100 MG CAPSULE PO SCH (09:39)
[2016-11-23] MEDS: LISINOPRIL 20 MG TABLET PO SCH (09:39)
[2016-11-23] MEDS: TAMSULOSIN 0.4 MG CAPSULE PO SCH (09:39)
[2016-11-23] MEDS: CHLORHEXIDINE 0.12% ORAL RINSE 60 ML BOTTLE SWISH/SPIT SCH (09:39)
[2016-11-23] MEDS: FAMOTIDINE 20 MG TABLET PO SCH (09:39)
[2016-11-24] MEDS: KETOROLAC 30 MG/1 ML VIAL IV SCH ×4 (00:03→18:37)
[2016-11-24 04:54] LABS: Basophils % 0.1 % (0.0-0.8); Eosinophils % 0.2 % (0.00-10.9); Hematocrit 31.7 VOL% (42.0-52.0); Hemoglobin 11.2 GM/DL (14.0-18.0); Immature Granulocytes % 2.7 %; Immature Granulocytes Absolute 0.39 #; Lymphocytes # 1.9 10*3/uL (1.4-4.0); Lymphocytes % 13.1 % (21.2-54.2); Mean Corpuscular HGB Conc 35.3 GM/DL (32-36); Mean Corpuscular Hemoglobin 32 PG (27-34); Mean Corpuscular Volume 90.6 FL (87-102); Mean Platelet Volume 11.6 FL (9.6-12.0); Monocytes # 1.2 10*3/uL (0.11-0.8); Monocytes % 8.2 % (1.7-12.7); NRBC # 0.09 10*3/uL; Neutrophils % 75.7 % (38.7-73.9); Platelet Count 175 T/CUMM (130-400); White Blood Count 14.6 T/CUMM (4-12)
[2016-11-24 05:06] LABS: Albumin 3.4 G/DL (3.4-5.0); Bilirubin,Direct 0.2 MG/DL (0.0-0.20); Bilirubin,Indirect 0.4 MG/DL (0.0-1.0); Bilirubin,Total 0.6 MG/DL (0.2-1.0); CKMB % 2.3 %; Calcium 8.3 MG/DL (8.5-10.1); Magnesium 2.3 MG/DL (1.8-2.4); Osmolality,Calculated 280.4 MOS/KG (273-304); Potassium 3.8 MMOL/L (3.5-5.1); Total Protein 6.6 G/DL (6.4-8.3)
[2016-11-24 05:30] LABS: Troponin I Only 7.5 NG/ML (0.00-0.045)
[2016-11-24] MEDS ORDERED: FUROSEMIDE 40 MG/4 ML VIAL IV ONE (06:00)
[2016-11-24 06:04] LABS: Band Neutrophils 2 % (0-10); Lymphocytes 16 % (20-55); Metamyelocytes 1 %; Myelocytes 2 %; Nucleated Red Blood Cells 1 (0-5); Segmented Neutrophils 70 % (50-85)
[2016-11-24 06:06] LABS: Anisocytosis Slight; Microcytosis Slight; Platelet Estimate Normal; Target Cells Few
[2016-11-24 06:07] LABS: Total Cells Counted 100
--- NOTE | 2016-11-24 06:19 | Cardiothoracic Progress Note ---
Cardiothoracic Subjective Interval history: Patient looks and feels better today. He has been out of bed walking to the bathroom without difficulty. Vital signs been stable and is breathing comfortably. We will try to increase his activities according to routine postoperative protocol and within the boundaries allowed by his incarceration. Overall his progress is satisfactory. Exam (Progress Note) - Constitutional Vitals: Period Temp Pulse Resp BP Sys/Perla Pulse Ox Last 24 Hr 98.0 F-99.4 F 92-122 12-20 112-174/65-98 91-94 Result/EKG - Labs CBC & BMP: 11/24/16 03:02 11/24/16 03:02 Labs: Laboratory Results - last 24 hr 11/20/16 11/23/16 11/23/16 16:43 07:51 16:09 WBC RBC Hgb Hct MCV MCH MCHC RDW Plt Count MPV Neut % (Auto) Lymph % (Auto) [place] % (Auto) Eos % (Auto) Baso % (Auto) Neut # (Auto) Lymph # (Auto) [place] # (Auto) Eos # (Auto) Baso # (Auto) Total Counted Immature Gran % Nucleated RBC % Immature Gran # Segmented Neutrophils Band Neutrophils Lymphocytes Monocytes Metamyelocytes Myelocytes Nucleated RBCs Nucleated RBCs # Platelet Estimate Anisocytosis Microcytosis Target Cells Sodium Potassium Chloride Carbon Dioxide Anion Gap BUN Creatinine GFR Calculation BUN/Creatinine Ratio Glucose POC Glucose 160 H 144 H Calculated Osmolality Calcium Magnesium Total Bilirubin Direct Bilirubin Indirect Bilirubin AST ALT Alkaline Phosphatase Total Creatine Kinase CK-MB (CK-2) CK and CKMB Interp Troponin I Total Protein Albumin Globulin Albumin/Globulin Ratio Crossmatch See Detail 11/24/16 11/24/16 03:02 03:02 WBC 14.6 H RBC 3.50 L Hgb 11.2 L Hct 31.7 L MCV 90.6 MCH 32 MCHC 35.3 RDW 14.0 Plt Count 175 MPV 11.6 Neut % (Auto) 75.7 H Lymph % (Auto) 13.1 L [place] % (Auto) 8.2 Eos % (Auto) 0.2 Baso % (Auto) 0.1 Neut # (Auto) 11.0 H Lymph # (Auto) 1.9 [place] # (Auto) 1.2 H Eos # (Auto) 0.0 Baso # (Auto) 0.0 Total Counted 100 Immature Gran % 2.7 Nucleated RBC % 0.6 Immature Gran # 0.39 Segmented Neutrophils 70 Band Neutrophils 2 Lymphocytes 16 L Monocytes 9 Metamyelocytes 1 Myelocytes 2 Nucleated RBCs 1 Nucleated RBCs # 0.09 Platelet Estimate Normal Anisocytosis Slight Microcytosis Slight Target Cells Few Sodium 140 Potassium 3.8 Chloride 103 Carbon Dioxide 27 Anion Gap 13.8 BUN 19 H D Creatinine 0.70 GFR Calculation 137 BUN/Creatinine Ratio 27.00 H Glucose 107 H POC Glucose Calculated Osmolality 280.4 Calcium 8.3 L Magnesium 2.3 Total Bilirubin 0.60 Direct Bilirubin 0.20 Indirect Bilirubin 0.4 AST 64 H ALT 59 Alkaline Phosphatase 103 Total Creatine Kinase 433 H D CK-MB (CK-2) 10.0 H D CK and CKMB Interp 2.3 Troponin I 7.500 H D Total Protein 6.6 Albumin 3.4 Globulin 3.2 Albumin/Globulin Ratio 1.0 L Crossmatch Quality Measures - VTE Contraindication to Pharmacological VTE Prophylaxis: High Risk of Bleeding Specialty Discharge - Follow Up or Referrals
--- NOTE | 2016-11-24 08:40 | XRay Report ---
Exam: XR chest 1V portable Indication: Shortness of breath Comparison study: 11/23/2016 Findings: Right-sided central venous catheter is in stable position. Median sternotomy wiring again noted. Enlargement of the cardiac silhouette appears similar to prior. No focal consolidation. Minimal left basilar opacities and blunting of the costophrenic angle appears similar prior. No pneumothorax. Impression: Similar blunting the left costo phrenic angle and left basilar opacities may represent residual atelectasis/effusion and/or infiltrate. No pneumothorax. Right-sided central venous catheter stable position. PROCEDURE INTERPRETED AT [facility] DEPARTMENT OF RADIOLOGY Final Report Signed by: Gonzalez Bauman
[2016-11-24] MEDS: TAMSULOSIN 0.4 MG CAPSULE PO SCH (08:47)
[2016-11-24] MEDS: DOCUSATE SODIUM 100 MG CAPSULE PO SCH (08:47)
[2016-11-24] MEDS: METOPROLOL TARTRATE 50 MG TABLET PO SCH ×2 (08:47→21:16)
[2016-11-24] MEDS: FAMOTIDINE 20 MG TABLET PO SCH (08:47)
[2016-11-24] MEDS: amLODIPine 10 MG TABLET PO SCH (08:47)
[2016-11-24] MEDS: LISINOPRIL 20 MG TABLET PO SCH (08:47)
[2016-11-24] MEDS: FERROUS SULFATE 325 MG TABLET PO SCH (08:47)
[2016-11-24] MEDS: hydroCHLOROthiazide 25 MG TABLET PO SCH (08:47)
[2016-11-24] MEDS: ASPIRIN EC 81 MG TABLET PO SCH (08:49)
[2016-11-24] MEDS: HYDROmorphone 2 MG/1 ML VIAL IV PRN (19:00)
[2016-11-25] MEDS: KETOROLAC 30 MG/1 ML VIAL IV SCH ×4 (00:41→18:45)
[2016-11-25 05:39] LABS: Basophils % 0.2 % (0.0-0.8); Eosinophils # 0.1 10*3/uL (0.0-0.87); Eosinophils % 0.9 % (0.00-10.9); Hematocrit 32.4 VOL% (42.0-52.0); Hemoglobin 11.3 GM/DL (14.0-18.0); Immature Granulocytes % 1.4 %; Immature Granulocytes Absolute 0.18 #; Lymphocytes # 2.2 10*3/uL (1.4-4.0); Lymphocytes % 17.4 % (21.2-54.2); Mean Corpuscular HGB Conc 34.9 GM/DL (32-36); Mean Corpuscular Hemoglobin 32 PG (27-34); Mean Platelet Volume 10.6 FL (9.6-12.0); Monocytes # 0.7 10*3/uL (0.11-0.8); Monocytes % 5.6 % (1.7-12.7); Neutrophils # 9.5 10*3/uL (1.4-7.4); Neutrophils % 74.5 % (38.7-73.9); Platelet Count 267 T/CUMM (130-400); Red Blood Count 3.56 MC/CUMM (3.8-5.5); Red Cell Distribution Width 13.4 % (9.3-17.3); White Blood Count 12.7 T/CUMM (4-12)
[2016-11-25 06:42] LABS: Alanine Aminotransferase 47 U/L (16-61); Alkaline Phosphatase 94 U/L (45-117); Aspartate Amino Transferase 31 U/L (0-37); Bilirubin,Indirect 0.7 MG/DL (0.0-1.0); Blood Urea Nitrogen 23 MG/DL (7-18); Calcium 8.6 MG/DL (8.5-10.1); Glucose 97 MG/DL (74-106); Magnesium 2.5 MG/DL (1.8-2.4); Potassium 3.3 MMOL/L (3.5-5.1); Sodium 143 MMOL/L (136-145); Total Protein 6.3 G/DL (6.4-8.3)
--- NOTE | 2016-11-25 08:26 | XRay Report ---
Exam: XR chest 1V portable Date: 11/25/2016 4:00 AM Indication: Shortness of breath Comparison: 11/24/2016 Technical: AP Findings: Low volume left effusion and atelectatic change present. Cardiomegaly with previous sternotomy with right IJ catheter. No pneumothorax. External cardiac leads are present. The Steinmann is intact. Screw present over the left humeral neck Impression: 1. Cardiomegaly with low volume left effusion with no significant interval change 2. Stable right IJ catheter and previous sternotomy PROCEDURE INTERPRETED AT [facility] DEPARTMENT OF RADIOLOGY Final Report Signed by: Dr. Misael Greene
[2016-11-25] MEDS: DOCUSATE SODIUM 100 MG CAPSULE PO SCH (09:12)
[2016-11-25] MEDS: ASPIRIN EC 81 MG TABLET PO SCH (09:12)
[2016-11-25] MEDS: amLODIPine 10 MG TABLET PO SCH (09:12)
[2016-11-25] MEDS: FERROUS SULFATE 325 MG TABLET PO SCH (09:12)
[2016-11-25] MEDS: TAMSULOSIN 0.4 MG CAPSULE PO SCH (09:12)
[2016-11-25] MEDS: hydroCHLOROthiazide 25 MG TABLET PO SCH (09:12)
[2016-11-25] MEDS: FAMOTIDINE 20 MG TABLET PO SCH (09:13)
[2016-11-25] MEDS: LISINOPRIL 20 MG TABLET PO SCH (09:13)
[2016-11-25] MEDS: METOPROLOL TARTRATE 50 MG TABLET PO SCH ×2 (09:13→22:04)
--- NOTE | 2016-11-25 09:13 | Cardiothoracic Progress Note ---
Cardiothoracic Subjective Interval history: Patient looks and feels fine. Vital signs are stable and is breathing comfortably. We are gradually increasing his activity as tolerable and is allowed by his confinement. Exam (Progress Note) - Constitutional Vitals: Period Temp Pulse Resp BP Sys/Perla Pulse Ox Last 24 Hr 97.1 F-99.7 F 75-106 16-20 107-132/63-90 91-97 Result/EKG - Labs CBC & BMP: 11/25/16 04:47 11/25/16 04:47 Labs: Laboratory Results - last 24 hr 11/24/16 11/24/16 11/24/16 12:07 15:07 18:16 WBC RBC Hgb Hct MCV MCH MCHC RDW Plt Count MPV Neut % (Auto) Lymph % (Auto) [place] % (Auto) Eos % (Auto) Baso % (Auto) Neut # (Auto) Lymph # (Auto) [place] # (Auto) Eos # (Auto) Baso # (Auto) Immature Gran % Nucleated RBC % Immature Gran # Nucleated RBCs # Sodium Potassium Chloride Carbon Dioxide Anion Gap BUN Creatinine GFR Calculation BUN/Creatinine Ratio Glucose POC Glucose 128 H 146 H 119 H Calculated Osmolality Calcium Magnesium Total Bilirubin Direct Bilirubin Indirect Bilirubin AST ALT Alkaline Phosphatase Total Creatine Kinase CK-MB (CK-2) Troponin I Total Protein Albumin Globulin Albumin/Globulin Ratio 11/25/16 11/25/16 04:47 04:47 WBC 12.7 H RBC 3.56 L Hgb 11.3 L Hct 32.4 L MCV 91.0 MCH 32 MCHC 34.9 RDW 13.4 Plt Count 267 D MPV 10.6 Neut % (Auto) 74.5 H Lymph % (Auto) 17.4 L [place] % (Auto) 5.6 Eos % (Auto) 0.9 Baso % (Auto) 0.2 Neut # (Auto) 9.5 H Lymph # (Auto) 2.2 [place] # (Auto) 0.7 Eos # (Auto) 0.1 Baso # (Auto) 0.0 Immature Gran % 1.4 Nucleated RBC % 0.0 Immature Gran # 0.18 Nucleated RBCs # 0.00 Sodium 143 Potassium 3.3 L Chloride 104 Carbon Dioxide 30 Anion Gap 12.3 BUN 23 H Creatinine 0.60 L GFR Calculation 147 BUN/Creatinine Ratio 38.00 H Glucose 97 POC Glucose Calculated Osmolality 288.0 Calcium 8.6 Magnesium 2.5 H Total Bilirubin 0.90 Direct Bilirubin 0.20 Indirect Bilirubin 0.7 AST 31 ALT 47 Alkaline Phosphatase 94 Total Creatine Kinase 159 D CK-MB (CK-2) 1.5 D Troponin I 5.070 H D Total Protein 6.3 L Albumin 3.0 L Globulin 3.3 Albumin/Globulin Ratio 0.9 L Quality Measures - VTE Contraindication to Pharmacological VTE Prophylaxis: High Risk of Bleeding Specialty Discharge - Follow Up or Referrals
[2016-11-25] MEDS: HYDROmorphone 2 MG/1 ML VIAL IV PRN ×5 (12:38→23:06)
[2016-11-26] MEDS: KETOROLAC 30 MG/1 ML VIAL IV SCH (01:17)
[2016-11-26] MEDS: HYDROmorphone 2 MG/1 ML VIAL IV PRN ×5 (03:50→21:05)
[2016-11-26] MEDS: TAMSULOSIN 0.4 MG CAPSULE PO SCH (08:53)
[2016-11-26] MEDS: DOCUSATE SODIUM 100 MG CAPSULE PO SCH (08:53)
[2016-11-26] MEDS: LISINOPRIL 20 MG TABLET PO SCH (08:53)
[2016-11-26] MEDS: FAMOTIDINE 20 MG TABLET PO SCH (08:54)
[2016-11-26] MEDS: ASPIRIN EC 81 MG TABLET PO SCH (08:54)
[2016-11-26] MEDS: METOPROLOL TARTRATE 50 MG TABLET PO SCH ×2 (08:54→21:03)
[2016-11-26] MEDS: amLODIPine 10 MG TABLET PO SCH (08:54)
[2016-11-26] MEDS: hydroCHLOROthiazide 25 MG TABLET PO SCH (08:54)
[2016-11-26] MEDS: FERROUS SULFATE 325 MG TABLET PO SCH (08:54)
--- NOTE | 2016-11-26 09:09 | Cardiothoracic Progress Note ---
Cardiothoracic Subjective Interval history: Patient looks and feels better. He still has considerable soreness but this is improving. Vital signs have been stable and is breathing comfortably. We will gradually try to increase his activities as permitted by his confinement but overall his progress seems satisfactory. Exam (Progress Note) - Constitutional Vitals: Period Temp Pulse Resp BP Sys/Peral Pulse Ox Last 24 Hr 96.7 F-98.7 F 68-79 16-20 86-119/48-55 90-98 Result/EKG - Labs CBC & BMP: 11/25/16 04:47 11/25/16 04:47 Quality Measures - VTE Contraindication to Pharmacological VTE Prophylaxis: High Risk of Bleeding Specialty Discharge - Follow Up or Referrals
[2016-11-27 04:51] LABS: Basophils % 0.2 % (0.0-0.8); Eosinophils # 0.2 10*3/uL (0.0-0.87); Eosinophils % 1.9 % (0.00-10.9); Hematocrit 30.5 VOL% (42.0-52.0); Hemoglobin 10.8 GM/DL (14.0-18.0); Immature Granulocytes % 1.3 %; Immature Granulocytes Absolute 0.15 #; Lymphocytes % 17.7 % (21.2-54.2); Mean Corpuscular HGB Conc 35.4 GM/DL (32-36); Mean Corpuscular Hemoglobin 32 PG (27-34); Mean Corpuscular Volume 91.3 FL (87-102); Mean Platelet Volume 10.3 FL (9.6-12.0); Monocytes % 8.9 % (1.7-12.7); Neutrophils # 7.9 10*3/uL (1.4-7.4); Platelet Count 325 T/CUMM (130-400); Red Blood Count 3.34 MC/CUMM (3.8-5.5); Red Cell Distribution Width 13.2 % (9.3-17.3); White Blood Count 11.3 T/CUMM (4-12)
[2016-11-27 05:23] LABS: Alanine Aminotransferase 52 U/L (16-61); Alkaline Phosphatase 154 U/L (45-117); Aspartate Amino Transferase 27 U/L (0-37); Blood Urea Nitrogen 15 MG/DL (7-18); Calcium 8.7 MG/DL (8.5-10.1); Glucose 100 MG/DL (74-106); Magnesium 2.2 MG/DL (1.8-2.4); Osmolality,Calculated 277.5 MOS/KG (273-304); Potassium 3.8 MMOL/L (3.5-5.1); Sodium 139 MMOL/L (136-145); Total Protein 6.1 G/DL (6.4-8.3)
--- NOTE | 2016-11-27 08:08 | Cardiothoracic Progress Note ---
Cardiothoracic Subjective Interval history: Patient is gradually improving. He still complains of a lot of chest wall discomfort. We are trying to wean him off of IV narcotics. I suspect he has a fairly high tolerance for these medications. Overall his progress is satisfactory however. Exam (Progress Note) - Constitutional Vitals: Period Temp Pulse Resp BP Sys/Perla Pulse Ox Last 24 Hr 97.6 F-98.6 F 72-88 16-20 107-117/56-63 92-96 Result/EKG - Labs CBC & BMP: 11/27/16 03:22 11/27/16 03:22 Labs: Laboratory Results - last 24 hr 11/27/16 11/27/16 03:22 03:22 WBC 11.3 RBC 3.34 L Hgb 10.8 L Hct 30.5 L MCV 91.3 MCH 32 MCHC 35.4 RDW 13.2 Plt Count 325 D MPV 10.3 Neut % (Auto) 70.0 Lymph % (Auto) 17.7 L [place] % (Auto) 8.9 Eos % (Auto) 1.9 Baso % (Auto) 0.2 Neut # (Auto) 7.9 H Lymph # (Auto) 2.0 [place] # (Auto) 1.0 H Eos # (Auto) 0.2 Baso # (Auto) 0.0 Immature Gran % 1.3 Nucleated RBC % 0.0 Immature Gran # 0.15 Nucleated RBCs # 0.00 Sodium 139 Potassium 3.8 Chloride 102 Carbon Dioxide 29 Anion Gap 11.8 BUN 15 Creatinine 0.60 L GFR Calculation 147 BUN/Creatinine Ratio 25.00 H Glucose 100 Calculated Osmolality 277.5 Calcium 8.7 Magnesium 2.2 Total Bilirubin 1.20 H Direct Bilirubin 0.20 Indirect Bilirubin 1.0 AST 27 ALT 52 Alkaline Phosphatase 154 H Total Creatine Kinase 66 D CK-MB (CK-2) < 1.0 Troponin I 1.530 H D Total Protein 6.1 L Albumin 3.0 L Globulin 3.1 Albumin/Globulin Ratio 0.9 L Quality Measures - VTE Contraindication to Pharmacological VTE Prophylaxis: High Risk of Bleeding Specialty Discharge - Follow Up or Referrals
[2016-11-27] MEDS: hydroCHLOROthiazide 25 MG TABLET PO SCH (08:33)
[2016-11-27] MEDS: amLODIPine 10 MG TABLET PO SCH (08:33)
[2016-11-27] MEDS: LISINOPRIL 20 MG TABLET PO SCH (08:33)
[2016-11-27] MEDS: ASPIRIN EC 81 MG TABLET PO SCH (08:33)
[2016-11-27] MEDS: FAMOTIDINE 20 MG TABLET PO SCH (08:34)
[2016-11-27] MEDS: TAMSULOSIN 0.4 MG CAPSULE PO SCH (08:34)
[2016-11-27] MEDS: DOCUSATE SODIUM 100 MG CAPSULE PO SCH (08:34)
[2016-11-27] MEDS: FERROUS SULFATE 325 MG TABLET PO SCH (08:34)
[2016-11-27] MEDS: METOPROLOL TARTRATE 50 MG TABLET PO SCH ×2 (08:34→21:17)
--- NOTE | 2016-11-27 11:18 | XRay Report ---
XR chest 2V Date: 11/27/2016 4:00 AM History: Shortness of breath Comparison: 11/25/2016 Technique: PA and lateral chest Findings: The heart is smaller in size with recent median sternotomy. Stable right IJ CVP line. Reduced parenchymal findings at the lung bases with small left pleural effusion. Degenerative changes are noted. Impression: Recent median sternotomy with reduced atelectasis/edema at the lung bases with residual small left pleural effusion. PROCEDURE INTERPRETED AT [facility] DEPARTMENT OF RADIOLOGY Final Report Signed by: Dr. Christine Sanchez
[2016-11-28 05:54] LABS: Basophils % 0.3 % (0.0-0.8); Eosinophils # 0.2 10*3/uL (0.0-0.87); Eosinophils % 2.2 % (0.00-10.9); Hematocrit 32.7 VOL% (42.0-52.0); Hemoglobin 11.1 GM/DL (14.0-18.0); Immature Granulocytes % 1.2 %; Immature Granulocytes Absolute 0.12 #; Lymphocytes # 1.9 10*3/uL (1.4-4.0); Lymphocytes % 19.4 % (21.2-54.2); Mean Corpuscular HGB Conc 33.9 GM/DL (32-36); Mean Corpuscular Hemoglobin 31 PG (27-34); Mean Corpuscular Volume 91.6 FL (87-102); Mean Platelet Volume 9.9 FL (9.6-12.0); Monocytes # 0.9 10*3/uL (0.11-0.8); Monocytes % 9.4 % (1.7-12.7); Neutrophils # 6.7 10*3/uL (1.4-7.4); Neutrophils % 67.5 % (38.7-73.9); Platelet Count 337 T/CUMM (130-400); Red Blood Count 3.57 MC/CUMM (3.8-5.5); Red Cell Distribution Width 13.2 % (9.3-17.3); White Blood Count 9.9 T/CUMM (4-12)
[2016-11-28 06:28] LABS: Alanine Aminotransferase 49 U/L (16-61); Albumin 2.9 G/DL (3.4-5.0); Alkaline Phosphatase 136 U/L (45-117); Aspartate Amino Transferase 26 U/L (0-37); Bilirubin,Indirect 0.7 MG/DL (0.0-1.0); Blood Urea Nitrogen 16 MG/DL (7-18); Calcium 8.4 MG/DL (8.5-10.1); Glucose 100 MG/DL (74-106); Magnesium 2.3 MG/DL (1.8-2.4); Osmolality,Calculated 277.5 MOS/KG (273-304); Potassium 3.9 MMOL/L (3.5-5.1); Sodium 139 MMOL/L (136-145); Total Protein 6.3 G/DL (6.4-8.3)
[2016-11-28 06:30] LABS: Troponin I Only 0.738 NG/ML (0.00-0.045)
--- NOTE | 2016-11-28 06:33 | Cardiothoracic Progress Note ---
Cardiothoracic Subjective Interval history: Patient had a comfortable night. He is breathing comfortably and his vital signs are stable. His pain is coming under better control on oral medications. He is increasing his activity. Hopefully he will be ready for discharge before long. Exam (Progress Note) - Constitutional Vitals: Period Temp Pulse Resp BP Sys/Perla Pulse Ox Last 24 Hr 97.4 F-99.2 F 68-78 16-20 88-127/43-67 92-97 Result/EKG - Labs CBC & BMP: 11/28/16 05:32 11/28/16 05:32 Labs: Laboratory Results - last 24 hr 11/28/16 11/28/16 05:32 05:32 WBC 9.9 RBC 3.57 L Hgb 11.1 L Hct 32.7 L MCV 91.6 MCH 31 MCHC 33.9 RDW 13.2 Plt Count 337 MPV 9.9 Neut % (Auto) 67.5 Lymph % (Auto) 19.4 L [place] % (Auto) 9.4 Eos % (Auto) 2.2 Baso % (Auto) 0.3 Neut # (Auto) 6.7 Lymph # (Auto) 1.9 [place] # (Auto) 0.9 H Eos # (Auto) 0.2 Baso # (Auto) 0.0 Immature Gran % 1.2 Nucleated RBC % 0.0 Immature Gran # 0.12 Nucleated RBCs # 0.00 Sodium 139 Potassium 3.9 Chloride 103 Carbon Dioxide 28 Anion Gap 11.9 BUN 16 Creatinine 0.70 GFR Calculation 140 BUN/Creatinine Ratio 22.00 H Glucose 100 Calculated Osmolality 277.5 Calcium 8.4 L Magnesium 2.3 Total Bilirubin 0.90 Direct Bilirubin 0.20 Indirect Bilirubin 0.7 AST 26 ALT 49 Alkaline Phosphatase 136 H Total Creatine Kinase 42 D CK-MB (CK-2) < 1.0 Troponin I 0.738 H D Total Protein 6.3 L Albumin 2.9 L Globulin 3.4 Albumin/Globulin Ratio 0.8 L Quality Measures - VTE Contraindication to Pharmacological VTE Prophylaxis: High Risk of Bleeding Specialty Discharge - Follow Up or Referrals
--- NOTE | 2016-11-28 07:53 | XRay Report ---
History: Shortness of breath Date: 11/28/2016 Study: Chest x-ray PA and lateral Comparison exam: 11/27/2016 The right IJ central line remains in stable satisfactory position. The cardiac silhouette is not enlarged. The mediastinal contours are stable in this patient status post median sternotomy. There is continued mild left greater than right bibasilar atelectasis, with interval improvement on the left. There is mild left-sided pleural effusion more so than right, stable or slightly improved. There is no pneumothorax. Osseous structures are unchanged. Impression: Continued left greater than right bibasilar atelectasis and mild pleural effusion, with slight interval improvement on the left. No interval worsening PROCEDURE INTERPRETED AT [facility] DEPARTMENT OF RADIOLOGY Final Report Signed by: Dr. Dilma Vazquez
--- NOTE | 2016-11-28 08:01 | EKG Report ---
Stationary ECG Study [facility] Test Date: 11/28/2016 8:01:34 AM Pat Name: PETER RICHTER Department: Room: 262 Gender: M [employer]: COLT : [id number] Requested by: Kike Banks Order Number: [id number] Reading MD: LOLLY CASEY Intervals Central Rate: 81 P: 56 [place]: 156 QRS: 79 QRSD: 101 T: -29 QT: 374 QTc: 412 Interpretive Statements SINUS RHYTHM POSSIBLE LEFT ATRIAL ENLARGEMENT MODERATE ST- T-WAVE ABNORMALITY, CONSIDER INFERIOR ISCHEMIA Electronically Signed On 11-28-16 09:21:29 CDT by LOLLY CASEY [email or web address]
[2016-11-28] MEDS: FERROUS SULFATE 325 MG TABLET PO SCH (08:50)
[2016-11-28] MEDS: LISINOPRIL 20 MG TABLET PO SCH (08:50)
[2016-11-28] MEDS: DOCUSATE SODIUM 100 MG CAPSULE PO SCH (08:50)
[2016-11-28] MEDS: FAMOTIDINE 20 MG TABLET PO SCH (08:51)
[2016-11-28] MEDS: METOPROLOL TARTRATE 50 MG TABLET PO SCH ×2 (08:51→21:32)
[2016-11-28] MEDS: hydroCHLOROthiazide 25 MG TABLET PO SCH (08:52)
[2016-11-28] MEDS: ASPIRIN EC 81 MG TABLET PO SCH (08:52)
[2016-11-28] MEDS: TAMSULOSIN 0.4 MG CAPSULE PO SCH (08:52)
[2016-11-28] MEDS: amLODIPine 10 MG TABLET PO SCH (08:52)
[2016-11-28] MEDS: HYDROmorphone 2 MG/1 ML VIAL IV PRN (21:32)
--- NOTE | 2016-11-29 08:34 | Cardiothoracic Progress Note ---
Cardiothoracic Subjective Interval history: Patient looks and feels okay. Vital signs are stable and is breathing comfortably. Laboratory work and x-rays all look essentially okay for postoperative day 7. Overall his progress appears satisfactory and he should be ready for discharge before long. Exam (Progress Note) - Constitutional Vitals: Period Temp Pulse Resp BP Sys/Perla Pulse Ox Last 24 Hr 97.9 F-99.0 F 62-83 16-20 85-126/43-66 93-96 Result/EKG - Labs CBC & BMP: 11/28/16 05:32 11/28/16 05:32 Quality Measures - VTE Contraindication to Pharmacological VTE Prophylaxis: High Risk of Bleeding Specialty Discharge - Follow Up or Referrals
[2016-11-29] MEDS: FAMOTIDINE 20 MG TABLET PO SCH (08:57)
[2016-11-29] MEDS: LISINOPRIL 20 MG TABLET PO SCH (08:58)
[2016-11-29] MEDS: FERROUS SULFATE 325 MG TABLET PO SCH (08:58)
[2016-11-29] MEDS: ASPIRIN EC 81 MG TABLET PO SCH (08:58)
[2016-11-29] MEDS: DOCUSATE SODIUM 100 MG CAPSULE PO SCH (08:58)
[2016-11-29] MEDS: hydroCHLOROthiazide 25 MG TABLET PO SCH (08:59)
[2016-11-29] MEDS: TAMSULOSIN 0.4 MG CAPSULE PO SCH (08:59)
[2016-11-29] MEDS: amLODIPine 10 MG TABLET PO SCH (08:59)
[2016-11-29] MEDS: METOPROLOL TARTRATE 50 MG TABLET PO SCH ×2 (08:59→20:28)
[2016-11-29] MEDS: HYDROmorphone 2 MG/1 ML VIAL IV PRN (20:27)
--- NOTE | 2016-11-30 06:23 | Cardiothoracic Progress Note ---
Cardiothoracic Subjective Interval history: Slow but steady progress. His pain is under a little bit better control. Vital signs have been stable and is breathing comfortably. We will gradually try to increase his activities within the confines of his tolerance and his limitations because of his incarceration. He probably will be ready for discharge before long for my inclination is to keep him in the hospital a little longer because of his immediate return to incarceration and the uncertain opportunities for rehabilitation there. Exam (Progress Note) - Constitutional Vitals: Period Temp Pulse Resp BP Sys/Perla Pulse Ox Last 24 Hr 97.9 F-98.7 F 56-83 16-20 100-126/53-66 93-100 Result/EKG - Labs CBC & BMP: 11/28/16 05:32 11/28/16 05:32 Quality Measures - VTE Contraindication to Pharmacological VTE Prophylaxis: High Risk of Bleeding Specialty Discharge - Follow Up or Referrals
[2016-11-30] MEDS: hydroCHLOROthiazide 25 MG TABLET PO SCH (08:36)
[2016-11-30] MEDS: DOCUSATE SODIUM 100 MG CAPSULE PO SCH (08:37)
[2016-11-30] MEDS: FAMOTIDINE 20 MG TABLET PO SCH (08:37)
[2016-11-30] MEDS: ASPIRIN EC 81 MG TABLET PO SCH (08:37)
[2016-11-30] MEDS: LISINOPRIL 20 MG TABLET PO SCH (08:37)
[2016-11-30] MEDS: FERROUS SULFATE 325 MG TABLET PO SCH (08:37)
[2016-11-30] MEDS: amLODIPine 10 MG TABLET PO SCH (08:37)
[2016-11-30] MEDS: TAMSULOSIN 0.4 MG CAPSULE PO SCH (08:38)
[2016-11-30] MEDS: METOPROLOL TARTRATE 50 MG TABLET PO SCH ×2 (08:38→21:39)
[2016-11-30] MEDS: HYDROmorphone 2 MG/1 ML VIAL IV PRN (21:35)
--- NOTE | 2016-12-01 08:49 | Cardiothoracic Progress Note ---
Cardiothoracic Subjective Interval history: Patient looks and feels better. Vital signs have been stable and is breathing comfortably. He is gradually increasing his activity and his pain control is somewhat better. Continue present therapy for now. Exam (Progress Note) - Constitutional Vitals: Period Temp Pulse Resp BP Sys/Perla Pulse Ox Last 24 Hr 97.3 F-99.1 F 63-84 16-18 94-115/41-64 94-96 Result/EKG - Labs CBC & BMP: 11/28/16 05:32 11/28/16 05:32 Quality Measures - VTE Contraindication to Pharmacological VTE Prophylaxis: High Risk of Bleeding Specialty Discharge - Follow Up or Referrals
[2016-12-01] MEDS: METOPROLOL TARTRATE 50 MG TABLET PO SCH ×2 (09:07→22:00)
[2016-12-01] MEDS: LISINOPRIL 20 MG TABLET PO SCH (09:07)
[2016-12-01] MEDS: DOCUSATE SODIUM 100 MG CAPSULE PO SCH (09:07)
[2016-12-01] MEDS: ASPIRIN EC 81 MG TABLET PO SCH (09:07)
[2016-12-01] MEDS: amLODIPine 10 MG TABLET PO SCH (09:07)
[2016-12-01] MEDS: hydroCHLOROthiazide 25 MG TABLET PO SCH (09:07)
[2016-12-01] MEDS: FAMOTIDINE 20 MG TABLET PO SCH (09:07)
[2016-12-01] MEDS: FERROUS SULFATE 325 MG TABLET PO SCH (09:07)
[2016-12-01] MEDS: TAMSULOSIN 0.4 MG CAPSULE PO SCH (09:08)
[2016-12-01] MEDS: HYDROmorphone 2 MG/1 ML VIAL IV PRN (22:00)
[2016-12-02] MEDS: HYDROmorphone 2 MG/1 ML VIAL IV PRN (00:58)
--- NOTE | 2016-12-02 06:35 | Discharge Summary ---
Hospital Course - Hospital Course Hospital Course: History of present illness: Patient is a 56-year-old man who is incarcerated at [facility]. He was brought from the hospital to [facility] because a period of decreased level of consciousness. When he was able to give history in the emergency room at [facility] was determined that he had been having episodes of chest discomfort over the past several weeks. He was admitted to the hospital for evaluation including cardiac catheterization which demonstrated critical two-vessel coronary disease. Patient was referred for bypass surgery. Past medical history review of systems social history and family history are documented in his admission note. Hospital course: Patient was taken to surgery where two-vessel bypass grafting was carried out with an internal mammary graft to the anterior descending coronary artery and a saphenous vein graft to right coronary artery. His postoperative course was essentially uncomplicated. His rhythm was stable throughout and he was gradually able to increase his activity within the confines of his continued incarceration. At the time of discharge he was able to ambulate with minimal assistance. He is going to be transferred to swing bed in the penitentiary [facility] in [facility] for rehabilitative care. Discharge medications are listed below. Specialty Discharge - Follow Up or Referrals Follow up with: Kike Hammond MD [Primary Care Provider] - 01/23/17 Discharge Plan - Discharge Data Disposition: Swing Bed, [facility], [facility] [place] Condition at Discharge: Stable Discharge Diet: advance to your usual diet Activity: resume usual activities as tolerated Hygiene: no restrictions Weight Bearing at Discharge: full weight bearing Driving: not until seen by doctor - Discharge Medications New Metoprolol Tartrate Tab [Lopressor Tab] 50 mg PO BID #60 tablet Continue amLODIPine [Norvasc] 10 mg PO DAILY hydroCHLOROthiazide [Hydrochlorothiazide] 25 mg PO DAILY Tamsulosin [Flomax] 0.4 mg PO DAILY Calcium Carbonate [Calcium Antacid] 1 tablet PO BID PRN PRN Reason: Indigestion Aspirin [Ecotrin] 81 mg PO DAILY Famotidine Tab [Pepcid Tab] 20 mg PO DAILY Lisinopril 40 mg PO DAILY - Follow Up or Referral - Forms/Instructions Instructions: Heart Healthy Diet (GEN), Cigarette Smoking and Your Health (GEN) , Coronary Artery Bypass Graft, Files Supervisor (GEN), Sternal Precautions (GEN) Exam - Constitutional Vitals: Period Temp Pulse Resp BP Sys/Perla Pulse Ox Last 24 Hr 97.0 F-98.7 F 66-86 16-20 93-122/48-64 93-97 Discharge Results Procedures and tests throughout hospitalization: Pending Orders 11/20/16 16:43 Fresh Frozen Plasma Routine Red Blood Cells Leuko Red Routine Single Donor Platelets Routine Type and Screen Routine DS: Provider Date of admission: 11/20/16 15:58 Primary care physician: Kike Hammond MD Attending physician on admission: Kike Hammond MD Consults: 11/23/16 06:19 Consult to Cardiac Rehabilitation [CONS] Routine Reason for Cardiac Rehabilitation: Other Consult Comment: Post CABG/heart surgery Consult to Diabetes Center, Educator [CONS] Routine Reason for Reinforcer: Diabetes Education Initial Insulin Education Consult Comment: insulin education Consult to Dietitian [CONS] Routine Reason for Dietitian: Dietary Consult Consult Comment: Cardiac, low salt, low cholesterol diet Consult to Physical Therapy [CONS] Routine Reason for Physical Therapy: Other Consult Comment: CV Rehab Consult to Physician [CONS] Routine Comment: Management of diabetes Consulting Provider: Consult to Specialist Group: Hospitalist Discharging clinician: Kike Hammond MD Expected date of discharge: 12/02/16
[2016-12-02 08:22] VITALS: BP 99/48
[2016-12-02] MEDS: DOCUSATE SODIUM 100 MG CAPSULE PO SCH (08:53)
[2016-12-02] MEDS: FERROUS SULFATE 325 MG TABLET PO SCH (08:53)
[2016-12-02] MEDS: hydroCHLOROthiazide 25 MG TABLET PO SCH (08:53)
[2016-12-02] MEDS: FAMOTIDINE 20 MG TABLET PO SCH (08:53)
[2016-12-02] MEDS: ASPIRIN EC 81 MG TABLET PO SCH (08:53)
[2016-12-02] MEDS: amLODIPine 10 MG TABLET PO SCH (08:53)
[2016-12-02] MEDS: LISINOPRIL 20 MG TABLET PO SCH (08:53)
[2016-12-02] MEDS: METOPROLOL TARTRATE 50 MG TABLET PO SCH (08:53)
[2016-12-02] MEDS: TAMSULOSIN 0.4 MG CAPSULE PO SCH (08:54)
== END 2016-12-02 10:35 | DRG 236 ==
LOC: N.ICU 15:58 → N.CVR 11-21 07:44 → N.ICU 11-22 13:34 → N.TELES 11-23 11:52